=== PATIENT | male | born 1975 | race Caucasian/White ===

== ENCOUNTER 2018-11-21 11:15 | Outpatient (REF) | payer BC, SELFPAY ==
[2018-11-21 14:00] LABS: Hemoglobin A1C 5.9 % (4.5-6.2)
== END 2018-11-21 11:35 ==
LOC: NCHCN 11:15
PROVIDERS: PCP Family Medicine; Visit Provider Family Medicine
DX: R73.01 Impaired fasting glucose (principal)
CPT/HCPCS: 83036

== ENCOUNTER 2020-01-29 00:19 | Emergency (ER) | payer BC, SELFPAY ==
--- NOTE | 2020-01-29 00:15 | RT.EKG_ITS ---
APPROVED REPORT Exam: Resting ECG Patient Location: E HR:114 bpm ECG Measurements Heart Rate 114 AXIS DE 171 P 77 QRSd 95 QRS 48 QT 322 T 56 QTc 443 <Conclusion> Sinus tachycardia...rate> 99 NOSTElevation, sinustachycardia 114
[2020-01-29 00:20] VITALS: BP 141/86; PULSE 115; RESP 18; TEMP 37.1; O2SAT 94
--- NOTE | 2020-01-29 00:38 | ED.GENADUL_ITS ---
Discharge Plan Disposition Patient Disposition: HOME Condition: Good Discharge Details Chief Complaint: Seizure Clinical Impression: Seizure, Elevated TSH Primary Care Provider: Davis Bajwa ED Provider: Charlie Vásquez Home Meds and New Rx's Prescriptions: Continued multivitamin [Daily-Emma] 1 EACH tablet 1 ea PO DAILY RF: 0 lamotrigine [Lamictal] 200 MG tablet 200 mg PO DAILY RF: 0 simvastatin 20 MG tablet 20 mg PO DAILY RF: 0 Discharge Instructions Instructions: Recurrent Seizures in Adults (ED) Additional Instructions: At this time it appears that you have had 1 of your common seizures. It is likely this may have been from dehydration. Together through shared decision making process we have decided to hold off on CT imaging for the time being, however I do feel that outpatient imaging and potentially MRI is certainly indicated. We will schedule a referral with neurology Dr. Mccain for reevaluation of your chronic seizures. You should not drive, operate machinery, climb heights (such as a ladder), swim, or bathe alone or do anything else which could be dangerous if you would have another seizure. Please abide by this for the next 6 months or until cleared by a physician. Please make sure you are drinking plenty of fluid every day, recommending 10 to 12 cups of water per day. Your thyroid levels were not at the normal limits. Please follow-up closely with Dr. Roy in regards to this. If you notice any worsening of your symptoms, or any new symptoms such as vomiting, diarrhea, fever, chills, shortness of breath, chest pain, numbness, weakness, or fainting , please return immediately to the emergency department for reevaluation. Please follow up with your primary care provider as soon as possible for reassessment and reevaluation. As always, it was a pleasure participating in your medical care today. Referrals: Davis Bajwa [Primary Care Provider] - Catherine Mccain MD [ [facility] STAFF PHYSICIAN] - Medical Decision Making 44-year-old male with a past medical history of seizure disorder, sleep apnea, on lamotrigine chronically for treatment of seizures presents today for seizure. His last seizure was in 2005, patient states that this evening he came home from work, had already had dinner, and then shortly thereafter per his went into a tonic-clonic seizure, consistent with his previous seizures last of which she had 14 years ago. It lasted 1 minute, he was postictal afterwards, EMS was contacted and he was brought to the ER for further evaluation. Blood glucose was stable per EMS, vital signs stable. Currently the patient is returned to his normal mental status. He denies any complaints of headache, chest pain, shortness of breath, fever, chills, dysuria, change in medications, missed medication dose, alcohol or drug use. He does state that he normally does not drink much water throughout the day, but otherwise denies any other complaints or changes. Physical exam demonstrates no tongue biting, no micturition. No focal neurologic deficits. No evidence of meningitis. Patient otherwise appears well. Mucous membranes are notably dry. We will rehydrate the patient with 1 L of normal saline, get basic labs. EKG shows no evidence of STEMI or dysrhythmia, I feel his symptoms at this time are inconsistent with a cardiac etiology. 2:20 AM Patient's laboratory work-up is returned normal, of note his TSH is mildly elevated, free T4 however is normal. He has been rehydrated with 1 L of normal saline and feels well. Repeat exam continues to show no focal neurologic deficits. Signs and symptoms appear clinically consistent with seizure. Likely secondary to dehydration and fatigue. We again discussed imaging options, and at this time through shared decision making process we will hold off on any CT scans of the head, defer for outpatient testing with potential MRI. Patient feels well and would like to go home. Will discharge home with recommendations for close follow-up with neurology as well as PCP follow-up. Patient will be taking his home lamotrigine upon arrival at home. We did send out a level for lamotrigine and this can be followed up later with PCP. I have extensively reviewed the treatment plan and discharge instructions with the patient and their family. I have addressed all patient concerns at this time. The patient and family was made aware of what symptoms to monitor for that would warrant a return to the emergency department. Discussed the plan with the patient and family, they demonstrate verbal understanding and agreement with our assessment and plan at this time. EKG 00: 29 Sinus rhythm, rate 114, intervals normal, no significant ST elevations or depressions, no T wave inversions. No evidence of STEMI or WPW, Brugada syndrome, or other abnormality. HPI General Date/Time Provider Initiated Documentation: 01/29/20 00:27 . HPI Narrative: 44-year-old male with a past medical history of seizure disorder, sleep apnea, on lamotrigine chronically for treatment of seizures presents today for seizure. His last seizure was in 2005, patient states that this evening he came home from work, had already had dinner, and then shortly thereafter per his went into a tonic-clonic seizure, consistent with his previous seizures last of which she had 14 years ago. It lasted 1 minute, he was postictal afterwards, EMS was contacted and he was brought to the ER for further evaluation. Blood glucose was stable per EMS, vital signs stable. Currently the patient is returned to his normal mental status. He denies any complaints of headache, chest pain, shortness of breath, fever, chills, dysuria, change in medications, missed medication dose, alcohol or drug use. He does state that he normally does not drink much water throughout the day, but otherwise denies any other complaints or changes. He denies any tongue biting or mouth pain or loose teeth either. Related Data Home Medications Medication Instructions Recorded Confirmed lamotrigine [Lamictal] 200 mg PO DAILY 12/21/15 01/29/20 simvastatin 20 mg PO DAILY 12/21/15 01/29/20 multivitamin [Daily-Emma] 1 ea PO DAILY 08/02/16 01/29/20 Allergies Allergy/AdvReac Type Severity Reaction Status Date / Time No Known Allergies Allergy Unverified 01/29/20 00:23 General Stated Complaint: Seizure BANDAR: 3 Review of Systems All systems reviewed & are unremarkable except as noted in HPI and below PFSH Medical History Seizures (Acute) Social History Smoking/Tobacco Use Status: Never Alcohol Intake: never Drug use: Never Substance use type: does not use Do you feel safe at home: Yes Do you feel safe in your relationship?: Yes Exam Narrative Exam Narrative: 1.Const: Well-nourished, Well-developed, appearing stated age 2.Eyes: PERRL, no conjunctival injection, and symmetrical lids. 3.ENT: Atraumatic external nose and ears. Moist MM. Neck: Symmetric, trachea midline, No thyromegaly. No evidence of trauma to the tongue or teeth. Patient demonstrates good movement of cervical neck. There is no nuchal rigidity, no nuchal tenderness. Patient is able to flex the neck without any difficulty or significant pain. Negative Kernig's and Brudzinski sign. 4.CVS: +S1/S2, No murmurs or gallops. Peripheral pulses 2+ and equal in all extremities. Brisk capillary refill in all extremities. 5.RESP: Unlabored respiratory effort. Clear to auscultation bilaterally. No wheezes rales or rhonchi 6.GI: Soft, Nontender/Nondistended, No hepatosplenomegaly. No guarding or rebound. 7.MSK: Normocephalic/Atraumatic, Extremities w/o deformity or ttp No cyanosis or clubbing, Normal movement of all extremities 8.Skin: Warm, Dry. No rashes or lesions. 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 Sensation grossly intact, no focal neurologic deficits. All 6 cardinal planes of vision are fully intact. No evidence of rotatory or vertical nystagmus. Minimal horizontal nystagmus present. The patient demonstrated a normal idjbcd-phwj-gpzgjq, good dexterity. There was no evidence of dysdiadochokinesia. Patient was able to ambulate without difficulty. There was no wide-based gait. Romberg testing was normal. Ucmj-fk-xxqe testing was normal. Sensation was intact bilaterally as well as muscle strength bilaterally for all extremities. Patient was able to verbalize butter cup with no slurring, or miss pronunciation. 10.Psych: (AAO) x3. Appropriate mood and affect Course Vital Signs Vital signs: Vital Signs Temperature 37.1 C 01/29/20 00:20 Pulse 115 H 01/29/20 00:20 Respiratory Rate 18 01/29/20 00:20 Blood Pressure 141/86 H 01/29/20 00:20 Pulse Oximetry 94 L 01/29/20 00:20 Temperature 37.1 C 01/29/20 00:20 Temperature Source Temporal Artery Scan 01/29/20 00:20 Pulse 115 H 01/29/20 00:20 Respiratory Rate 18 01/29/20 00:20 Respiratory Effort Non-Labored 01/29/20 00:25 Respiratory Depth Normal 01/29/20 00:25 Respiratory Pattern Normal 01/29/20 00:25 Blood Pressure 141/86 H 01/29/20 00:20 Blood Pressure Position Sitting 01/29/20 00:20 Pulse Oximetry 94 L 01/29/20 00:20 Oxygen Delivery Method Room Air 01/29/20 00:20 Oxygen Flow Rate 0 01/29/20 00:20 Pain Level 0 01/29/20 00:20
[2020-01-29] MEDS: Normal Saline 1,000 ML 1000 ML IV (00:48)
[2020-01-29 01:02] LABS: Abs Immature Grans 0.02 k/cumm (0.0-0.09); Absolute Basophil Count 0.02 k/cumm (0.0-0.2); Absolute Eosinophil Count 0.48 k/cumm (0.0-0.7); Absolute Lymphocyte Count 2.33 k/cumm (1.2-3.4); Absolute Monocyte Count 0.75 k/cumm (0.11-0.7); Absolute Neutrophil Count 3.44 k/cumm (1.2-6.7); Basophils % 0.3; Eosinophils % 6.8; HCT 41.3 % (40.0-50.0); HGB 14.3 g/dL (13.5-17.5); Immature Grans % 0.3 %; Lymphocytes % 33.1; Mean Corp. HGB Concentration 34.6 g/dL (32.0-36.0); Mean Corpuscular Hemoglobin 29.4 pg (27.0-33.0); Mean Platelet Volume 9.3 fL (8.0-11.0); Monocytes % 10.7; Neutrophils % 48.8; Platelet Count 184 x1000/uL (130-400); RBC 4.86 m/cumm (4.50-6.00); RBC Distribution Width 12.8 % (11.8-14.1); White Blood Cell Count 7.04 k/cumm (4.4-10.8)
[2020-01-29 01:23] LABS: ALT 30 U/L (16-63); AST 21 U/L (15-37); Albumin 4.3 g/dL (3.4-5.0); Alkaline Phosphatase 92 U/L (46-116); Anion Gap 12.6 mmol/L (3-11); BUN 17 mg/dL (7-18); Bilirubin, Total 0.2 mg/dL (0.2-1.0); CO2 24.4 mmol/L (21.0-32.0); CREATININE 1.04 mg/dL (0.70-1.30); Calcium 8.6 mg/dL (8.5-10.1); Chloride 101 mmol/L (98-107); Glucose 129 mg/dL (74-106); Potassium 3.6 mmol/L (3.5-5.1); Sodium 138 mmol/L (136-145); TSH (W/Ref FT4) 5.39 uIU/mL (0.36-3.74); Total Protein 7.6 g/dL (6.4-8.2)
[2020-01-29 01:25] LABS: Troponin I < 0.05 ng/mL (<0.06)
[2020-01-29] MEDS: Acetaminophen 500 MG TAB 1000 MG PO (01:50)
[2020-01-29] MEDS: Lidocaine 5% Patch 1 PATCH TP (01:51)
[2020-01-29 02:01] LABS: FREE T4 0.84 ng/dL (0.76-1.46)
[2020-01-29 02:05] VITALS: BP 122/76; PULSE 92; RESP 18; TEMP 37.1; O2SAT 96
[2020-01-31 12:10] LABS: Lamotrigine 0.8 mcg/mL (2.5 - 15.0)
== END 2020-01-29 02:35 | disposition home or self-care (01) ==
PROVIDERS: Emergency Provider Student in an Organized Health Care Education/Training Program; PCP Family Medicine
DX: G40.909 Epilepsy, unspecified, not intractable, without status epilepticus (principal); R94.6 Abnormal results of thyroid function studies; E86.0 Dehydration
CPT/HCPCS: 36415; 80053; 80175; 93005; 96360; 96361; 99284; 84439; 84443; 84484; 85025; 93010; 99285

== ENCOUNTER 2020-02-01 03:56 | Outpatient (CLI) | payer BC, SELFPAY ==
--- NOTE | 2020-02-01 16:10 | DI.MRI_ITS ---
EXAM: MR BRAIN WO CLINICAL HISTORY: first seizure in 14 years,PARTIAL EPILEPSY,G40.109. TECHNIQUE: Multiplanar multisequence MRI was performed. COMPARISON: No exams were available for comparison FINDINGS: MR examination of brain was performed according to the usual protocol additional coronal T2 weighted imaging was obtained. Partial opacification of right maxillary antrum noted along with ethmoid mucoperiosteal thickening an d fluid bilaterally, consistent with chronic sinusitis. Ventricular system is normal in appearance. There is tiny focus of mildly increased signal intensity in right frontal white matter, nonspecific. No other signal abnormality identified in the brain. T here is question of mild right hippocampal atrophy seen on coronal images. No significant signal abn ormality identified in this area. Diffusion-weighted imaging shows no evidence of intracranial infarction. Susceptibility weighted dulce ging shows no evidence of hemorrhage or calcification. The orbital and temporal bone structures appe ar intact. There is normal appearance of the jjwiar-qe-Wdnsyt vasculature. IMPRESSION: Question slight right hippocampal atrophy seen on coronal images, this is a finding which may be seen in mesial temporal sclerosis. No other significant findings. Solitary small white matter high-sign al focus seen in right frontal lobe may be followed with a repeat MRI in 6-12 months if no prior stud ies are available for comparison. DATA REPOSITORY:
== END 2020-02-01 04:16 ==
PROVIDERS: PCP Family Medicine; Visit Provider Psychiatry & Neurology Neurology
DX: G40.109 Localization-related (focal) (partial) symptomatic epilepsy and epileptic syndromes with simple partial seizures, not intractable, without status epilepticus (principal); R90.89 Other abnormal findings on diagnostic imaging of central nervous system
CPT/HCPCS: 70551

== ENCOUNTER 2020-02-18 14:38 | Outpatient (CLI) | payer BC, SELFPAY ==
--- NOTE | 2020-02-18 | DI.RAD_ITS ---
EXAM: XR THORACIC SPINE COMPLETE CLINICAL HISTORY: THORACIC BACK PAIN,M54.9 TECHNIQUE: COMPARISON: CR CHEST 2 VIEWS PA,LAT from 03/04/2015 CR CHEST 2 VIEWS PA,LAT from 01/22/2017 FINDINGS: Three views were obtained. There is a slight biconvex thoracolumbar scoliosis. The intervertebral d isc spaces are fairly well maintained. There is minimal anterior wedging of the T8 vertebral body, i ncreased since prior chest radiograph of January 2017. This may represent minimal anterior compression fracture, acute versus old. No additional significant findings. IMPRESSION: Minimal anterior compression fracture T8 of uncertain age, please correlate clinically.
== END 2020-02-18 14:58 ==
PROVIDERS: PCP Family Medicine; Visit Provider Physician Assistant
DX: M48.54XA Collapsed vertebra, not elsewhere classified, thoracic region, initial encounter for fracture (principal); M54.9 Dorsalgia, unspecified
CPT/HCPCS: 72072

== ENCOUNTER 2020-03-28 13:35 | Outpatient (CLI) | payer BC, SELFPAY ==
[2020-03-30 13:00] LABS: Lamotrigine 4.1 mcg/mL (2.5 - 15.0)
== END 2020-03-28 13:55 ==
PROVIDERS: PCP Family Medicine; Visit Provider Psychiatry & Neurology Neurology
DX: G40.109 Localization-related (focal) (partial) symptomatic epilepsy and epileptic syndromes with simple partial seizures, not intractable, without status epilepticus (principal); Z51.81 Encounter for therapeutic drug level monitoring
CPT/HCPCS: 36415; 80175

== ENCOUNTER 2020-07-07 20:23 | Outpatient (REF) | payer BC, SELFPAY ==
[2020-07-07 13:51] LABS: Hemoglobin A1C 5.8 % (<5.7)
[2020-07-07 14:01] LABS: TSH (W/Ref FT4) 2.76 uIU/mL (0.36-3.74)
[2020-07-07 14:13] LABS: Calculated LDL 95 mg/dL (<100); Cholesterol 167 mg/dL (<200); HDL Cholesterol 46 mg/dL (40-60); Triglyceride 132 mg/dL (<150)
== END 2020-07-07 20:43 ==
LOC: NCHCN 20:23
PROVIDERS: PCP Family Medicine; Visit Provider Family Medicine
DX: Z00.00 Encounter for general adult medical examination without abnormal findings (principal); E03.9 Hypothyroidism, unspecified; R73.03 Prediabetes; Z13.220 Encounter for screening for lipoid disorders
CPT/HCPCS: 80061; 83036; 84443

== ENCOUNTER 2020-07-24 00:58 | Outpatient (CLI) | payer BC, SELFPAY ==
--- NOTE | 2020-07-24 | DI.MRI_ITS ---
EXAM: MR THORACIC SPINE WO CLINICAL HISTORY: THORACIC BACK PAIN, M54.9,S/P FALL WITH COMP FX,WORSENING PAIN,NO RELIEF TECHNIQUE: Multiplanar multisequence MRI of the thoracic spine was performed without intravenous con trast. COMPARISON: No exams were available for comparison FINDINGS: OSSEOUS: Mild depression of the superior endplate of T8 is noted, not associated with sub endplate in traosseous edema in the vertebral body. However, there is some intraosseous edema noted in both pedi cles at this level. Also in the T7 pedicles. There is no disc herniation at this level none nor spi nal canal stenosis nor epidural nor paraspinal hematoma. The exiting neural foramina are patent at t his level as well as other levels throughout the thoracic spinal column. There are no ominous osseou s lesions in the thoracic vertebrae. THORACIC SPINAL CORD: There is no abnormal signal in the cervical spinal cord and no evidence of foca l cord atrophy nor focal cord swelling. There is no evidence of syringomyelia nor significant spinal cord dysraphism. There is no evidence of mass at the conus medullaris. PARASPINAL TISSUES: There is a partially included finding in the right kidney which is probably a cys t measuring at least 4 centimetres. Renal ultrasound recommended. IMPRESSION: 1. Mild superior endplate compression of T8, not associated with sub endplate edema although there do es appear to be some edema in the pedicles and lamina of this vertebral body and also T7. No evidenc e of posterior cortex retropulsion. No central spinal canal stenosis. If clinically indicated 1 [facility] [place] [facility] consider performing CT scan through this region to determine if there are any very subtle fracture lines within the posterior osseous elements where there appears to be bone edema on this MRI study. 2. Finding in the right kidney which is partially included measures at least 4 centimeters. Probably a cyst but recommend ultrasound examination for confirmation. DATA REPOSITORY:
== END 2020-07-24 01:18 ==
PROVIDERS: PCP Family Medicine; Visit Provider Family Medicine
DX: S22.060A Wedge compression fracture of T7-T8 vertebra, initial encounter for closed fracture (principal); N28.89 Other specified disorders of kidney and ureter
CPT/HCPCS: 72146

== ENCOUNTER 2020-08-14 18:46 | Emergency (ER) | payer BC, SELFPAY ==
[2020-08-14 18:54] VITALS: BP 167/94; PULSE 116; RESP 18; TEMP 36.6; O2SAT 99
--- NOTE | 2020-08-14 19:17 | W.ED.GENAD ---
Discharge Plan Disposition Patient Disposition: HOME Condition: Stable Discharge Details Clinical Impression: Right foot sprain Primary Care Provider: Davis Bajwa ED Provider: Nino Guzmán Home Meds and New Rx's Prescriptions: Continued lamotrigine 50 mg tablet,disintegrating 50 mg PO HS Qty: 90 RF: 3 lamotrigine [Lamictal] 200 mg tablet 200 mg PO HS Qty: 90 RF: 3 multivitamin [Daily-Emma] 1 EACH tablet 1 ea PO DAILY RF: 0 simvastatin 20 MG tablet 20 mg PO DAILY RF: 0 Discharge Instructions Instructions: Foot Sprain (ED) Additional Instructions: Please use orthopedic boot and crutches for the next 1 week. If pain persists, please follow-up with orthopedics. Please take ibuprofen over the counter. Take 600mg by mouth every 6 hours as needed for pain. Return to the ER for any worsening or new concerning symptoms. Referrals: Davis Bajwa [Primary Care Provider] - Discharge Data Discharge Date/Time-TO BE ENTERED AT DEPARTURE: 08/14/20 20:35 Medical Decision Making 19:23 -- 45yo m with prior fracture of right fifth metatarsal, here after inversion injury today with tenderness over his lateral right foot. Tender at the base of his fifth metatarsal. Consider fracture versus sprain. Plan to obtain x-ray. I will give ibuprofen for discomfort. 20:20 -- xray interpreted by radiology: negative for fx. Suspect foot sprain. Foot boot provided. Usual and customary discharge instructions reviewed with patient. Patient has crutches at home and will use them. HPI General Mode of arrival: ambulatory. Date/Time Provider Initiated Documentation: 08/14/20 19:06. Limitations to Documentation: no limitations. Information obtained by: patient. HPI Narrative: 45-year-old male presents with chief complaint of foot pain. Patient notes he tripped over a bag and inverted his right foot. This occurred just prior to arrival. He has pain lateral right foot and over fifth metatarsal proximally. He notes he previously had fracture of the base of the fifth metatarsal that was treated nonoperatively. No other injury. Related Data Home Medications Medication Instructions Recorded Confirmed simvastatin 20 mg PO DAILY 12/21/15 08/14/20 multivitamin [Daily-Emma] 1 ea PO DAILY 08/02/16 08/14/20 lamotrigine 200 mg tablet 200 mg PO HS #90 tab 01/30/20 08/14/20 lamotrigine 50 mg disintegrating 50 mg PO HS #90 tab 01/30/20 08/14/20 tablet Previous Rx's Medication Instructions Recorded lamotrigine 200 mg tablet 200 mg PO HS #90 tab 01/30/20 lamotrigine 50 mg disintegrating 50 mg PO HS #90 tab 01/30/20 tablet Allergies Allergy/AdvReac Type Severity Reaction Status Date / Time No Known Allergies Allergy Unverified 08/14/20 18:57 General Stated Complaint: Orthopedic BANDAR: 4 Review of Systems Musculoskeletal Musculoskeletal: Reports as per HPI and Denies numbness Neurologic Neurologic: Denies numbness [facility] Medical History (Updated 08/14/20 @ 20:27 by Nino Guzmán MD) Elevated TSH Hyperlipidemia Obstructive sleep apnea Partial epilepsy Surgical History 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 History of mandibular surgery jaw reconstruction 1992 S/P nasal polypectomy 2009 Family History Father Heart disease Hypothyroid Mother Migraine Social History Smoking/Tobacco Use Status: Never Smoking risk assessment performed?: Yes Alcohol Intake: never Drug use: Never Substance use type: does not use Household members: spouse Housing: house Number of Children: 2 current occupation: [employer] Pets and animals: Yes Pets and animals: dog(s) What is your relationship status?: Panel score (0-1 are the most socially isolated patients): 1 What type of physical activity do you participate in: occasional exercise Seatbelt use: always Do you feel safe at home: Yes Do you feel safe in your relationship?: Yes Exam Const General: cooperative and no acute distress Cardio Rate: regular rate and not tachycardic Rhythm: regular rhythm Skin General skin exam: no rashes or lesions noted Neuro General: patient alert and patient awake Extrem General: no edema Right lower extremity: lower leg Details: no tenderness, ankle Details: no tenderness and no swelling and foot Details: tenderness Location: of the lateral foot and of the base of the 5th metatarsal, vascular exam Details: dorsalis pedis pulse present and motor-sensory exam Details: light-touch normal Course Vital Signs Vital signs: Vital Signs Temperature 36.6 C 08/14/20 18:54 Pulse 116 H 08/14/20 18:54 Respiratory Rate 18 08/14/20 18:54 Blood Pressure 167/94 H 08/14/20 18:54 Pulse Oximetry 99 08/14/20 18:54 Temperature 36.6 C 08/14/20 18:54 Temperature Source Temporal Artery Scan 08/14/20 18:54 Pulse 116 H 08/14/20 18:54 Respiratory Rate 18 08/14/20 18:54 Respiratory Effort 08/14/20 19:13 Blood Pressure 167/94 H 08/14/20 18:54 Blood Pressure Position Sitting 08/14/20 18:54 Pulse Oximetry 99 08/14/20 18:54 Pain Level 8 08/14/20 18:54
[2020-08-14] MEDS: Ibuprofen 600 MG TAB PO (19:20)
--- NOTE | 2020-08-14 19:40 | DI.RAD_ITS ---
EXAM: XR FOOT RT COMPLETE CLINICAL HISTORY: pain lateral foot, tripped inverted. TECHNIQUE: 2D digital imaging was performed. COMPARISON: CR RIGHT FOOT COMPLETE from 11/15/2016 FINDINGS: There is no evidence of fracture nor diastasis of the Lisfranc joint.. No radiopaque foreign body. No osseous lesions. Bone density is normal. IMPRESSION: DATA REPOSITORY: RADIATION DOSE DELIVERED:
--- NOTE | 2020-08-14 19:49 | DI.VRAD_ITS ---
PROCEDURE INFORMATION: Exam: XR Right Foot Complete Exam date and time: 08/14/2020 7:41 PM Age: 45 years old Clinical indication: Patient HX: Right foot pain after inversion injury. Previous 5th mtp FX 4 years ago. TECHNIQUE: Imaging protocol: XR Right foot. Views: 3 or more views. COMPARISON: CR RIGHT FOOT COMPLETE 11/15/2016 8:34 AM FINDINGS: Bones/joints: The prior nondisplaced transverse fracture through the base of the 5th metatarsal appears healed. No acute fractures are identified. There are no subluxations. Again noted is mild hallux valgus deformity. The joint spaces are maintained without degenerative changes. The plantar arch is maintained. Soft tissues: Normal. IMPRESSION: No acute fractures or subluxations. Dictated and Authenticated by: Davis Garrido MD. Ordering:BRIE Oneill MD
[2020-08-14 20:36] VITALS: BP 132/75; PULSE 88; RESP 16; TEMP 36.6
== END 2020-08-14 20:35 | disposition home or self-care (01) ==
PROVIDERS: Emergency Provider Student in an Organized Health Care Education/Training Program; PCP Family Medicine
DX: S93.691A Other sprain of right foot, initial encounter (principal); X50.9XXA Other and unspecified overexertion or strenuous movements or postures, initial encounter
CPT/HCPCS: 99283; 73630

== ENCOUNTER 2021-09-22 09:17 | Outpatient (CLI) | payer BC, SELFPAY | END 2021-09-22 09:18 | disposition home or self-care (01) | LOC: DI.CM 09:18 | PROVIDERS: PCP Family Medicine; Visit Provider Physician Assistant | DX: R69 Illness, unspecified (principal) | CPT/HCPCS: 93010 ==

== ENCOUNTER 2021-09-22 10:16 | Outpatient (CLI) | payer BC, SELFPAY ==
--- NOTE | 2021-09-22 10:00 | DI.RAD_ITS ---
Exam(s) XR CHEST 2V PA LATERAL EXAM: XR CHEST 2V PA LATERAL CLINICAL HISTORY: viral symptoms, right chest pain, hx right pneumon, R07.9. TECHNIQUE: 2D digital imaging was performed. COMPARISON: CR CHEST 2 VIEWS PA,LAT from 01/22/2017 FINDINGS: Heart size is normal. The mediastinum is not widened. Lungs are clear. No infiltrates nor pleural effusions. IMPRESSION: No acute pulmonary findings. DATA REPOSITORY: RADIATION DOSE DELIVERED:
== END 2021-09-22 10:36 ==
PROVIDERS: PCP Family Medicine; Visit Provider Physician Assistant
DX: R07.89 Other chest pain (principal)
CPT/HCPCS: 71046

== ENCOUNTER 2021-12-08 18:39 | Outpatient (REF) | payer BC, SELFPAY ==
[2021-12-08 19:33] LABS: Anion Gap 8.3 mmol/L (3-11); BUN 12 mg/dL (7-18); CO2 27.7 mmol/L (21.0-32.0); CREATININE 0.9 mg/dL (0.70-1.30); Calcium 9.1 mg/dL (8.5-10.1); Chloride 103 mmol/L (98-107); Glucose 119 mg/dL (74-106); Potassium 3.7 mmol/L (3.5-5.1); Sodium 139 mmol/L (136-145); TSH (W/Ref FT4) 1.86 uIU/mL (0.36-3.74)
== END 2021-12-08 18:40 | disposition home or self-care (01) ==
LOC: NCHCN 18:39
PROVIDERS: PCP Family Medicine; Visit Provider Family Medicine
DX: E03.9 Hypothyroidism, unspecified (principal); R03.0 Elevated blood-pressure reading, without diagnosis of hypertension
CPT/HCPCS: 80048; 84443

== ENCOUNTER 2022-04-22 09:16 | Day surgery (SDC) | payer OTHER, SELFPAY ==
--- NOTE | 2022-04-22 06:02 | W.PM.DSUDISC ---
Discharge Plan Disposition Patient Disposition: HOME Condition: Good Discharge Details Reason For Visit: Screening colonoscopy routine health maintenance Attending Provider: Reji Jamison Primary Care Provider: Davis Bajwa Home Meds and New Rx's Prescriptions: Continued acetaminophen [Tylenol Extra Strength] 500 mg tablet 1,000 mg PO BID PRN meloxicam 15 mg tablet 15 mg PO DAILY PRN (Reason: back pain) 30 Days Qty: 30 5RF Rx Instructions: Take with food. Stop ibuprofen. lamotrigine 50 mg tablet,disintegrating 50 mg PO HS Qty: 90 3RF lamotrigine [Lamictal] 200 mg tablet 200 mg PO HS Qty: 90 3RF multivitamin [Daily-Emma] 1 EACH tablet 1 ea PO DAILY cyclobenzaprine 10 mg tablet 10 mg PO TID simvastatin 20 MG tablet 20 mg PO DAILY Discharge Instructions Instructions: Colorectal Polyps (DC) Additional Instructions: 1. If tolerated, consume a soft, low fiber diet for 1-2 days. [address] Do not drive, drink alcohol, operate machinery, make critical decisions, or do activities that require coordination or balance for 24 hours. 3. Because air was put into your colon during the procedure, expelling air from your rectum (passing gas or farting) is normal. 4. You may not have a bowel movement for 1-3 days because of the colonoscopy prep. This is normal. 5. Go directly to the emergency room if you notice any of the following: Develop chills (warm to touch), or if you have a thermometer and your temperature is above 101 Difficulty breathing or difficultly swallowing Persistent vomiting Severe abdominal pain, other than gas cramps Severe chest pain Black, tarry stools Any bleeding ? exceeding one tablespoon 6. Call your physician if the site where your intravenous was started becomes red, swollen, painful, and warm to touch. 7. Your physician has reviewed your pre-procedure medications. Please continue to take those medications as previously ordered. You will be given specific information/education regarding any changes to your medications before leaving. Activity:: Activity as Tolerated Diet:: As Tolerated Discharge Orders Discharge Orders: Discharge Order (Routine); Ordered 04/22/22 Ordered By: Reji Jamison DS: Diagnosis Discharge Diagnosis (1) Rectal polyp: Status: Acute Asessment and Plan: My office will contact you with the results of the biopsies
--- NOTE | 2022-04-22 06:04 | W.COLOREPORT ---
Colonoscopy Report Date of procedure: 04/22/22 Pre-op diagnosis general: screening colonoscopy routine health maintenance Post-op diagnosis procedure note: other (rectal polyps) Procedure: screening colonoscopy Surgeon: Reji Jamison Anesthesia Type: General:No Airway Estimated blood loss (mL): 30 Pathology: other (rectal polyps x3) Complications: None Disposition: same day Indications: Alex is a 46 year old male who is here for his first screening colonoscopy as part of routine health maintenance Prep: Miralax/Dulcolax Procedure Start Time: 10:07 Procedure End Time: 10:30 Retraction Time: 18 Procedure Description: After the induction of monitored anesthetic care, and with the patient in left lateral decubitus position, I began by performing an external anorectal exam.? Perineum and skin were normal, as was the anal verge.? There was no evidence of external hemorrhoids.? Next, I performed a digital rectal exam.? I did not appreciate any abnormal findings.? Next, I advanced a colonoscope into the rectal vault.? I performed retroflexion.? I did not see signs of pathologic internal hemorrhoids.? Using insufflation, I then advanced the colonoscope beyond the rectal folds and into the sigmoid colon before advancing towards the cecum.? While traversing the rectum, I identified 3 large polyps. They were all about 1 cm. It were all pedunculated. I was able to perform polypectomy using cold snare. There was minimal bleeding. The quality of the prep was great.? The scope was noted to be in the cecum by identification of the ileocecal valve and appendiceal orifice.? I then began withdrawing the colonoscope using repeated irrigation as necessary for full evaluation of the colonic mucosa. ?Once the scope was withdrawn to the level of the rectum, great care was taken to examine portions of the rectal folds.? Finally, the scope was withdrawn and the patient was brought to the same-day surgery recovery unit as the anesthetic wore off. ?The findings and instructions were shared with the patient prior to discharge.
[2022-04-22 09:25] VITALS: BP 133/84; PULSE 86; RESP 16; TEMP 36.6; O2SAT 99
--- NOTE | 2022-04-22 09:40 | W.ANESPRE ---
General Info Date of Service Date Performed: 04/22/22 Height: 5 ft 7 in Weight: 72.2 kg Body Mass Index (BMI): 24.9 Surgical Procedure: Operation Date: 04/22/22 10:35 Proposed Procedure Side Surgeon francisco javier Jamison MD Meds Allergies and Home Medications Allergies Allergy/AdvReac Type Severity Reaction Status Date / Time No Known Allergies Allergy Verified 04/22/22 09:23 Home Medication Medication Instructions Recorded simvastatin 20 mg tablet 20 mg PO DAILY 12/21/15 multivitamin (Daily-Emma tablet) 1 ea PO DAILY 08/02/16 lamotrigine 200 mg tablet 200 mg PO HS #90 tabs 01/30/20 (Lamictal) lamotrigine 50 mg disintegrating 50 mg PO HS #90 tabs 01/30/20 tablet acetaminophen 500 mg tablet 1,000 mg PO BID PRN 09/08/20 (Tylenol Extra Strength) meloxicam 15 mg tablet 15 mg PO DAILY PRN back pain 30 09/08/20 days #30 tabs cyclobenzaprine 10 mg tablet 10 mg PO TID 02/17/22 Current Visit Medications: Current Medications Generic Name Dose Route Start Last Admin Trade Name Freq PRN Reason Stop Dose Admin Hyoscyamine Sulfate 0.125 mg 04/22/22 06:02 Hyoscyamine 0.125 Mg Sl/Oral/Chew SL DIRECTED PRN Ringer's Solution 1,000 mls @ 80 mls/hr 04/22/22 06:00 IV 05/21/22 23:59 [facility] IV Miscellaneous Supplies 1 each 04/22/22 06:00 Iv Access IV 05/21/22 23:59 DIRECTED ISAMAR Ondansetron HCl 4 mg 04/22/22 06:02 Ondansetron 4 Mg/2 Ml Vial IVP Q4H PRN PRN Nausea / Vomiting Sodium Chloride 0 ml 04/22/22 06:00 Normal Saline Flush 10 Ml Syr IV 05/21/22 23:59 PRN PRN Sodium Chloride 0 ml 04/22/22 06:00 Normal Saline 10 Ml Vial IJ 05/21/22 23:59 DIRECTED PRN Sterile Water 0 ml 04/22/22 06:00 Water,Injection,Sterile 10 Ml Vial IJ 05/21/22 23:59 DIRECTED PRN PFSH Active Problems Active Problems: Problem Status Onset Code Elevated blood pressure reading R03.0 Sleep apnea G47.30 Family history of colon cancer Z80.0 Medical History Medical History Acute pharyngitis due to other specified organisms Elevated TSH Hyperlipidemia Impacted cerumen of both ears Nasal polyposis Nasal polyps Obstructive sleep apnea Pain in throat Partial epilepsy Prediabetes Renal mass Seasonal allergies Subclinical hypothyroidism Temporal lobe epilepsy Last Seizure 01/2020-[place] Thoracic back pain Surgical History Surgical History 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 History of mandibular surgery jaw reconstruction 1992 S/P nasal polypectomy 2010 Tobacco Smoking/Tobacco Use Status: Never Alcohol Alcohol Intake: never Substance Use Substance use: Never Substance use type: does not use Vital Signs and Lab Results Vital Signs Most Recent Vital Signs in EMR: Most Recent Vital Signs Temp Pulse Resp BP Pulse Ox 36.6 C 86 16 133/84 99 04/22/22 09:25 04/22/22 09:25 04/22/22 09:25 04/22/22 09:25 04/22/22 09:25 Lab Results Blood Type / Crossmatch: No Data to Display Complete Blood Count: No Data to Display Complete Metabolic Panel: No Data to Display Liver Function Panel: No Data to Display Coagulation Panel: No Data to Display Cardiac Panel: No Data to Display Arterial Blood Gas: No Data to Display Venous Blood Gas: No Data to Display Pancreas Panel: No Data to Display Thyroid Panel: No Data to Display Infectious Disease: No Data to Display Blood Cultures: No Data to Display Toxicology Panel: No Data to Display Anesthesia Assessment and Plan Anesthesia History Personal History: PONV Family History: No Family History of Anesthesia Complications Exercise Tolerance Exercise Tolerance: Metabolic Equivalents>4 Pertinent Negatives Pertinent Negatives: No Symptoms of GERD, No Major Cardiovascular Symptoms or Complaints and No Major Pulmonary Symptoms or Complaints Cardiac & Pulmonary Exam Cardiac Exam: Normal S1/S2 Heart Sounds Pulmonary Exam: Clear Bilateral Breath Sounds Implantable Cardiac Device Does patient have a Pacemaker or an ICD?: No Airway Exam Known Difficult Airway: No Mallampati Class: 2 Mouth Opening: Normal (> 3cm) Thyromental Distance: Greater than 3 cm Neck Range of Motion: Full ROM Neck Circumference: Normal Teeth Condition: Normal Dentition ASA Classification ASA Score: ASA 2 Emergency Case?: No NPO Status NPO Status: NPO Clears >2 hours, Solids >8 hours Anesthesia Plan Resuscitation Status: Full Code Anesthesia Technique: General Anesthesia Airway Planned: Natural Airway Monitors Used: Standard Monitors
[2022-04-22 09:43] VITALS: BMI 24.9
[2022-04-22] MEDS: Lactated Ringers 1,000 ML 80 ML IV (09:46)
--- NOTE | 2022-04-22 10:10 | BOWEL_PTH ---
PATIENT: Alex Martinez LOC: [facility] U#:[id number] AGE/SX: 46/M ROOM: RE04/22/[address]: Reji Jamison MD : 1975 BED: DIS: 04/22/2022 SPEC #: [id number] RECD: 04/22/22 13:04 STATUS: YONATHAN REQ #: [id number] SARTHAK: 04/22/22 10:[address]: Reji Jamison DEPT: Surgical Specimen RECD BY: Amita Velasquez ENTERED: 04/22/22 13:06 SP TYPE: Bowel OTHR DR: Davis Bajwa Tissues: 1 - BIOPSY BOWEL 2 - BIOPSY BOWEL 3 - BIOPSY BOWEL Procedures: GROSS AND MICRO LEVEL 4 Comments: [id number]
[2022-04-22 10:42] VITALS: BP 122/83; PULSE 81; RESP 16; TEMP 36.6; O2SAT 99
[2022-04-22 11:10] VITALS: BP 118/87; PULSE 81; RESP 16; TEMP 36.6; O2SAT 100
--- NOTE | 2022-04-22 13:04 | ANES.POST_ITS ---
Postoperative Evaluation Date, Time and Location Date Performed: 04/22/22 Time Performed: 13:04 Patient Location: Day Surgery Unit Vital Signs Most Recent Imported Vital Signs: Most Recent Vital Signs Temp Pulse Resp BP Pulse Ox 36.6 C 81 16 118/87 100 04/22/22 11:10 04/22/22 11:10 04/22/22 11:10 04/22/22 11:10 04/22/22 11:10 Pain Score Most Recent Pain Score: Most Recent Pain Score Pain Level 0 04/22/22 11:10 Assessment Mental Status: Awake (Alert & Oriented to Patient Baseline) Airway and Respiratory Function: Patent airway with normal (patient baseline) respiratory exam Cardiovascular Function: Hemodynamically Stable Hydration Status: Adequately Hydrated Nausea & Vomiting: No Nausea or Vomiting Pain: Pt. Denies Any Pain Peripheral Nerve Block: Patient did not receive a nerve block Postoperative Comments:: Patient seen earlier today. Doing well, denied questions at that time. A ppropriate for discharge.
== END 2022-04-22 12:57 | disposition home or self-care (01) ==
PROVIDERS: PCP Family Medicine; Visit Provider Surgery
PROC: 0DJD8ZZ Inspection of Lower Intestinal Tract, Via Natural or Artificial Opening Endoscopic (ICD-10-PCS; CPT 45378; principal; 2022-04-22 10:30)
DX: Z12.11 Encounter for screening for malignant neoplasm of colon (principal); K62.1 Rectal polyp; G40.909 Epilepsy, unspecified, not intractable, without status epilepticus; G47.33 Obstructive sleep apnea (adult) (pediatric); Z80.0 Family history of malignant neoplasm of digestive organs; R73.03 Prediabetes
CPT/HCPCS: 45385; 88305

== ENCOUNTER 2022-09-06 15:25 | Outpatient (CLI) | payer OTHER, SELFPAY ==
--- NOTE | 2022-09-06 15:15 | DI.RAD_ITS ---
Exam(s) XR WRIST LT COMPLETE EXAM: XR WRIST LT COMPLETE CLINICAL HISTORY: pain and instability of left thumb CMC. TECHNIQUE: 2D digital imaging was performed. Three views. COMPARISON: No exams were available for comparison FINDINGS: BONES: No acute fracture is present. No bony destructive lesion is seen. JOINTS: The carpal bones are normally aligned. No significant degenerative changes. SOFT TISSUE: Normal. IMPRESSION: Unremarkable radiographs of the left wrist. DATA REPOSITORY: RADIATION DOSE DELIVERED:
== END 2022-09-06 15:26 | disposition home or self-care (01) ==
LOC: DIORS 15:25
PROVIDERS: PCP Family Medicine; Referring Provider Family Medicine; Visit Provider Student in an Organized Health Care Education/Training Program
DX: S63.042A Subluxation of carpometacarpal joint of left thumb, initial encounter (principal); X58.XXXA Exposure to other specified factors, initial encounter
CPT/HCPCS: 73110

== ENCOUNTER 2023-05-04 07:10 | Emergency (ER) | payer OTHER, SELFPAY ==
[2023-05-04 07:14] VITALS: BP 161/88; PULSE 101; RESP 16; TEMP 36.7; O2SAT 99
[2023-05-04 07:21] VITALS: BP 161/88; PULSE 101; RESP 16; TEMP 36.7; O2SAT 101
--- NOTE | 2023-05-04 07:27 | W.ED.GENAD ---
Discharge Plan Disposition Patient Disposition: Home Condition: Improving Discharge Details Chief Complaint: Abd Prob Clinical Impression: Acute mesenteric adenitis Primary Care Provider: Davis Bajwa ED Provider: Ortega Honeycutt Home Meds and New Rx's Prescriptions: No Action acetaminophen [Tylenol Extra Strength] 500 mg tablet 1,000 mg PO BID PRN meloxicam 15 mg tablet 15 mg PO DAILY PRN (Reason: back pain) 30 Days Qty: 30 5RF Rx Instructions: Take with food. Stop ibuprofen. fluticasone propionate [Flonase Allergy Relief] 50 mcg/actuation spray,suspension 2 spray intranasal DAILY 30 Days Qty: 16 12RF Rx Instructions: administer into each nostril lamotrigine 50 mg tablet,disintegrating 50 mg PO HS Qty: 90 3RF lamotrigine [Lamictal] 200 mg tablet 200 mg PO HS Qty: 90 3RF multivitamin [Daily-Emma] 1 EACH tablet 1 ea PO DAILY cyclobenzaprine 10 mg tablet 10 mg PO TID simvastatin 20 MG tablet 20 mg PO DAILY Discharge Instructions Instructions: Mesenteric Adenitis (ED) Additional Instructions: Please continue to hydrate at home consider Pedialyte/Gatorade as well as anti-inflammatory such as ibuprofen and acetaminophen. Please return to the emergency department for any worsening symptoms Stand Alone Forms: Work Release Medical Decision Making 48-year-old male presents with 3 days of loose stool nausea abdominal bloating and discomfort. Afebrile nontoxic however mildly tachycardic, with gaseous distention of abdomen nonperitoneal. Consider viral illness gastroenteritis COVID foodborne illness lower suspicion for bowel obstruction was also consider colitis, patient had a clear colonoscopy within the last year lower suspicion for malignancy. Fluids antiemetics analgesia, basic labs COVID swab, close reassessment consider imaging if no improvement 8: 56 patient feeling better after medications and fluids. Mild transaminitis without elevation of bilirubin. Shared decision regarding home with close follow-up versus pursuing further imaging discussed with patient, we will pursue CT abdomen pelvis with IV contrast. 10: 41 patient resting comfortably feeling better after meds and fluids. CT showing likely mesenteric adenitis in the setting of viral gastroenteritis. Home care instructions and return precautions given HPI General Date/Time Provider Initiated Documentation: 05/04/23 07:15. HPI Narrative: 48-year-old male presents with 3 days of loose stool bloating abdominal discomfort, tried to adjust diet and use Gas-X without relief. Nausea without vomiting. Denies fevers or chills no recent travel no recent sick contacts. Patient does work here at the hospital. No history of abdominal surgeries. Patient endorses a normal colonoscopy within the last year. Related Data Home Medications Medication Instructions Recorded Confirmed simvastatin 20 mg tablet 20 mg PO DAILY 12/21/15 04/27/23 multivitamin (Daily-Emma tablet) 1 ea PO DAILY 08/02/16 04/27/23 lamotrigine 200 mg tablet 200 mg PO HS #90 tabs 01/30/20 04/27/23 (Lamictal) lamotrigine 50 mg disintegrating 50 mg PO HS #90 tabs 01/30/20 04/27/23 tablet acetaminophen 500 mg tablet 1,000 mg PO BID PRN 09/08/20 04/27/23 (Tylenol Extra Strength) meloxicam 15 mg tablet 15 mg PO DAILY PRN back pain 30 09/08/20 04/27/23 days #30 tabs cyclobenzaprine 10 mg tablet 10 mg PO TID 02/17/22 04/27/23 fluticasone propionate 50 2 spray intranasal DAILY 30 days 04/27/23 04/27/23 mcg/actuation nasal #16 grams spray,suspension (Flonase Allergy Relief) Previous Rx's Medication Instructions Recorded lamotrigine 200 mg tablet 200 mg PO HS #90 tabs 01/30/20 (Lamictal) lamotrigine 50 mg disintegrating 50 mg PO HS #90 tabs 01/30/20 tablet meloxicam 15 mg tablet 15 mg PO DAILY PRN back pain 30 09/08/20 days #30 tabs fluticasone propionate 50 2 spray intranasal DAILY 30 days 04/27/23 mcg/actuation nasal #16 grams spray,suspension (Flonase Allergy Relief) Allergies Allergy/AdvReac Type Severity Reaction Status Date / Time No Known Allergies Allergy Verified 04/27/23 14:23 General Stated Complaint: Abd Prob BANDAR: 3 Review of Systems Narrative: Review of Systems Constitutional: negative Eyes: negative ENT: negative Cardiovascular: negative Respiratory: negative Gastrointestinal: Nausea, diarrhea, abdominal : negative Musculoskeletal: negative Skin: negative Neurologic: negative Psych: negative PFSH All Active Problems (Updated 05/04/23 @ 10:43 by Ortega Honeycutt MD) Acute mesenteric adenitis (Acute) Eustachian tube dysfunction (Acute) Dysfunction of left rotator cuff (Acute) Subluxation of carpometacarpal joint of left thumb (Acute) Hyperplastic colon polyp (Acute) Rectal polyp (Acute) Elevated blood pressure reading (Acute) Sleep apnea (Acute) Family history of colon cancer (Acute) Medical History Acute pharyngitis due to other specified organisms Elevated TSH Hyperlipidemia Impacted cerumen of both ears Nasal polyposis Nasal polyps Obstructive sleep apnea Pain in throat Partial epilepsy Prediabetes Renal mass Seasonal allergies Subclinical hypothyroidism Temporal lobe epilepsy Last Seizure 01/2020-[place] Thoracic back pain Surgical History 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 History of colonoscopy (~04/2022) History of mandibular surgery jaw reconstruction 1992 S/P nasal polypectomy 2009 Family History Father Heart disease Hypothyroid Mother Migraine Social History Smoking/Tobacco Use Status: Never Smoking risk assessment performed?: Yes Alcohol Intake: never Drug use: Never Substance use type: does not use Household members: spouse Housing: house Number of Children: 2 current occupation: [employer] Pets and animals: Yes Pets and animals: dog(s) What is your relationship status?: Panel score (0-1 are the most socially isolated patients): 1 What type of physical activity do you participate in: occasional exercise Seatbelt use: always Do you feel safe at home: Yes Do you feel safe in your relationship?: Yes Exam Narrative Exam Narrative: Physical Examination General: alert, awake, cooperative, resting comfortably, no acute distress HEENT: normocephalic, atraumatic; PERRL, EOM intact, conjunctiva normal; no nasal discharge; moist mucous membranes, oral and pharyngeal mucosa normal, tolerating secretions Neck: supple, trachea midline; full ROM Chest: normal to inspection Respiratory: normal respiratory effort, speaking in full sentences, clear to auscultation, no wheezing, rales or rhonchi Cardiac: Tachycardic, regular rhythm, S1S2 intact, no murmurs rubs or gallops GI: abdomen soft, non-tender, mild gaseous distention; no palpable mass or hepatosplenomegaly Skin: no lesions, rashes or trauma appreciated Neuro: AAOx3, normal speech, moving all extremities Psych: Appropriate mood and affect Course Vital Signs Vital signs: Vital Signs Temperature 36.7 C 05/04/23 07:14 Pulse 101 H 05/04/23 07:14 Respiratory Rate 16 05/04/23 07:14 Blood Pressure 161/88 H 05/04/23 07:14 Pulse Oximetry 99 05/04/23 07:14 Temperature 36.7 C 05/04/23 07:21 Temperature Source Tympanic 05/04/23 07:21 Pulse 101 H 05/04/23 07:21 Respiratory Rate 16 05/04/23 07:21 Blood Pressure 161/88 H 05/04/23 07:21 Blood Pressure Position Sitting 05/04/23 07:21 Pulse Oximetry 101 H 05/04/23 07:21 Oxygen Delivery Method Room Air 05/04/23 07:21 Oxygen Flow Rate 0 05/04/23 07:14
[2023-05-04 07:43] LABS: Abs Immature Grans 0.01 10^3/uL (0.0-0.06); Absolute Basophil Count 0.02 10^3/uL (0.0-0.2); Absolute Eosinophil Count 0.38 10^3/uL (0.0-0.7); Absolute Lymphocyte Count 1.38 10^3/uL (1.2-3.4); Absolute Monocyte Count 0.82 10^3/uL (0.1-0.8); Basophils % 0.3; Eosinophils % 6.3; HCT 44.8 % (40.0-50.0); HGB 15.4 g/dL (13.5-17.5); Immature Grans % 0.2; MCH 29.2 pg (27.0-33.0); MCHC 34.4 % (32.0-36.0); MCV 85 fL (80-95); MPV 8.7 fL (8.0-11.0); Monocytes % 13.6; Neutrophils % 56.6; Platelet Count 135 10^3/uL (130-400); RBC 5.28 10^6/uL (4.36-5.78); RDW 12.7 % (11.8-14.1); RDW-SD 39.2 fL; WBC 6.01 10^3/uL (4.4-10.8)
[2023-05-04] MEDS: Ketorolac 15 MG/ML VIAL IVP (07:43)
[2023-05-04] MEDS: Normal Saline 1,000 ML 1000 ML IV (07:43)
[2023-05-04] MEDS: Ondansetron 4 MG/2 ML VIAL IVP (07:44)
[2023-05-04 07:59] LABS: ALT 73 U/L (16-63); AST 45 U/L (15-37); Albumin 3.8 g/dL (3.4-5.0); Alkaline Phosphatase 109 U/L (46-116); Anion Gap 4.6 mmol/L (3-11); BUN 5 mg/dL (7-18); Bilirubin, Total 0.3 mg/dL (0.2-1.0); CO2 30.4 mmol/L (21.0-32.0); CREATININE 0.9 mg/dL (0.70-1.30); Calcium 9.1 mg/dL (8.5-10.1); Chloride 104 mmol/L (98-107); Estimated GFR 106.01 (mL/min/1.73m2); Glucose 104 mg/dL (74-106); Lipase 21 U/L (16-77); Potassium 3.5 mmol/L (3.5-5.1); Sodium 139 mmol/L (136-145); Total Protein 7.2 g/dL (6.4-8.2)
[2023-05-04 08:28] LABS: COVID-19 PCR Negative (Negative); Influenza A PCR Negative (Negative); Influenza B PCR Negative (Negative); RSV PCR Negative (Negative)
[2023-05-04 08:43] LABS: Source Nasopharynx
--- NOTE | 2023-05-04 08:52 | DI.CT_ITS ---
Exam(s) CT ABDOMEN PELVIS W EXAM: CT ABDOMEN PELVIS W CLINICAL HISTORY: abd pain bloating diarrhea TECHNIQUE: Imaging Protocol: Axial computed tomography images with coronal and sagittal reformatted images were created and reviewed CONTRAST MATERIAL: Intravenous: Omnipaque 350 Contrast volume:100 mL Oral: No COMPARISON: US US RENAL from 04/26/2023 FINDINGS: ABDOMEN: Lung Bases: There may be a small hiatal hernia present. Liver: Normal density. No measurable mass. Portal, Superior Mesenteric, and Splenic Veins: Unremarkable. Gallbladder and Biliary Tract: No radiodense calculus or dilation. Pancreas: Normal density, no abnormal calcifications or inflammatory process. Spleen: Normal. Adrenals: No masses seen. Kidneys: Normal size, contour and axis. No radiodense stones or obstructive uropathy. There is a 4.3 cm simple cyst in the right kidney. No follow-up is recommended. Abdominal Aorta: Abdominal portion non-dilated. Bowel: There are few diverticula seen in the sigmoid colon but no evidence of acute diverticulitis. There is no evidence of bowel wall thickening or obstruction. There is no evidence of pneumatosis. Appendix is unremarkable. Peritoneal Cavity: Mildly prominent lymph nodes are seen in the mesentery which may represent mesente ciera adenitis. No ascites is seen. No free air. Lymph Nodes: Within normal limits. Bones: Within normal limits for the patient's age. Soft Tissues: Unremarkable. PELVIS: Bladder: Symmetric distention, no gross wall thickening. Reproductive Organs: Unremarkable as visualized. Lymph Nodes: Within normal limits. Bones: Within normal limits for the patient's age. IMPRESSION: 1. Mildly enlarged lymph nodes seen in the mesentery which may represent mesenteric adenitis. 2. Normal appendix. 3. No evidence of a bowel inflammation or infectious process. 4. Findings were discussed with Dr. Honeycutt at 10:28 a.m. on 05/04/2023. RADIATION DOSE DELIVERED: Total DLP DATA REPOSITORY: All CT scans at this facility are submitted to the National Radiology Data Registry (NRDR) Dose Index Registry (DIR) with the [employer] (A[employer]). RADIATION OPTIMIZATION: All CT scans at this facility use at least one of these dose optimization te chniques: automated exposure control; mA and/or kV adjustment per patient size (includes targeted exa ms where dose is matched to clinical indication); or iterative reconstruction.
[2023-05-04] MEDS: Normal Saline - Diluent 50 ML VIAL IJ (09:39)
[2023-05-04] MEDS: Omnipaque 350 MG/ML 500 ML BTL-Imaging package IJ (09:41)
== END 2023-05-04 11:03 | disposition home or self-care (01) ==
PROVIDERS: Emergency Provider Emergency Medicine; PCP Family Medicine
DX: R10.9 Unspecified abdominal pain (principal); R14.0 Abdominal distension (gaseous); I88.0 Nonspecific mesenteric lymphadenitis; Z20.822 Contact with and (suspected) exposure to COVID-19
CPT/HCPCS: 80053; 83690; 87637; 96361; 96374; 96375; 99285; 74177; 85025; 99284; J1885; J2405

== ENCOUNTER 2023-09-01 16:58 | Outpatient (REF) | payer OTHER, SELFPAY ==
[2023-09-01 16:07] LABS: ALT 26 U/L (16-63); AST 15 U/L (15-37); Albumin 4.4 g/dL (3.4-5.0); Alkaline Phosphatase 112 U/L (46-116); Anion Gap 8.5 mmol/L (3-11); BUN 10 mg/dL (7-18); Bilirubin, Total 0.3 mg/dL (0.2-1.0); CO2 29.5 mmol/L (21.0-32.0); CREATININE 0.9 mg/dL (0.70-1.30); Calcium 9.5 mg/dL (8.5-10.1); Chloride 106 mmol/L (98-107); Estimated GFR 106.01 (mL/min/1.73m2); Glucose 104 mg/dL (74-106); Potassium 4.1 mmol/L (3.5-5.1); Sodium 144 mmol/L (136-145); Total Protein 7.5 g/dL (6.4-8.2)
[2023-09-01 17:28] LABS: Hemoglobin A1C 5.7 % (<5.7)
== END 2023-09-01 16:59 | disposition home or self-care (01) ==
LOC: NCHCN 16:58
PROVIDERS: PCP Family Medicine; Visit Provider Student in an Organized Health Care Education/Training Program
DX: R73.03 Prediabetes (principal); R94.5 Abnormal results of liver function studies
CPT/HCPCS: 80053; 83036

== ENCOUNTER 2024-07-25 13:26 | Outpatient (CLI) | payer OTHER, SELFPAY ==
--- NOTE | 2024-07-25 11:15 | DI.RAD_ITS ---
Exam(s) XR WRIST LT COMP NAVICULAR EXAM: XR WRIST LT COMP NAVICULAR CLINICAL HISTORY: evaluation of worsening wrist, thumb CMC pain.subluxation carpometacarpal. TECHNIQUE: 2D digital imaging was performed of the left wrist. Four images were obtained. Scaphoid , PA, oblique and lateral views were obtained. COMPARISON: No exams were available for comparison FINDINGS: BONES: No acute fracture is present. No bony destructive lesion is seen. JOINTS: The carpal bones are normally aligned. The joint spaces are well maintained. The CMC joint i s unremarkable. No significant arthritic changes are seen. SOFT TISSUE: Normal. IMPRESSION: Unremarkable radiographs of the left wrist. DATA REPOSITORY: RADIATION DOSE DELIVERED:
--- OUTSIDE RECORDS SUMMARY | 2024-07-25 13:31 | XMS_ITS | Encounter Summary ---
Author Organization [facility] Address [address] [place] [address] Care Team Providers Care Diagnostic Medical Sonographer Name Role Phone Davis Jameson MD Primary Care Provider [phone] Encounter Details Date Type Department Care Team (Late st Contact Info) Description 04/22/2022 Lab Requisition [facility] Pathology & Laboratory Medicine - [address] [id number] Reji Jamison MD [address] [place] [address], [address] [place], [place] [id number] Encounter for screening for malignant neoplasm of colon Social History Tobacco Use Types Packs/Day Years Used Date Smoking Tobacco: Never Assessed Sex and Gender Information Value Date Recorded Sex Assigned at Not on file Legal Sex Male 18:51 EST Gender Identity Male 08/12/2021 9:34 EST Sexual Orientation Not on file documented as of this encounter Plan of Treatment Not on file documented as of this encounter Procedures Procedure Name Priority Date/Time Associated Diagnosis Comments SURGICAL PATHOLOGY Today 04/22/2022 10 :10 EDT Encounter for screening for malignant neoplasm of colon documented in this encounter Results * SURGICAL PATHOLOGY (04/22/2022 10:10 EDT) Note to Patient The following pathology results have been interpreted by your pathologist and may be available to you before your health provider has had the opportunity to review them. Please allow time for your provider to receive these results and explore management options, if applicable. 04/23/2022 17:24 EDT [facility] Final Diagnosis A. COLON, 17 CM, POLYP: - Hyperplastic polyp. B. COLON, 20 CM, POLYP: - Hyperplastic polyp. C. COLON, 24 CM, POLYP: - Hyperplastic polyp. 04/23/2022 17:24 [facility] Attestation By the signature below, the attending physician certifies that they have 1) personally conducted a gross and/or microscopic examination of the described specimen(s), and/or personally interpreted the results of laboratory testing of the described specimen(s), and 2) personally rendered or confirmed the above diagnosis. 04/23/2022 17:24 [facility] at 1724 Clinical History Colon cancer screening K62.1 04/23/2022 17:24 [facility] Gross Description A. Received in formalin labelled with proper patient identification (initials K, N) and polyp at 17 cm is a tabares-pink polypoid structure measuring 0.6 x 0.4 x 0.3 cm. Submitted intact in A1. B. Received in formalin labelled with proper patient identification (initials K, N) and polyp at 20 cm is a tabares-pink tissue measuring 0.4 x 0.2 x 0.1 cm. Submitted intact in B1. C. Received in formalin labelled with proper patient identification (initials K, N) and polyp at 24 cm is a tabares-red polypoid tissue measuring 0.6 x 0.4 x 0.4 cm. Bisected and submitted entirely in C1. MARIBELL WATTS(ASCP) 04/22/2022 20:01 04/23/2022 17:24 [facility] Performing Lab [facility] 04/23/2022 17:24 [facility] Scanned Images 04/23/2022 17:24 [facility] Tissue ENTIRE COLON / Unknown 04/22/2022 10:10 EDT 04/22/2022 19:08 EDT Tissue specimen (specimen) COLON STRUCTURE / Unknown 04/22/2022 10:10 EDT 04/22/2022 19:08 EDT Tissue specimen (specimen) COLON STRUCTURE / Unknown 04/22/2022 10:10 EDT 04/22/2022 19:08 EDT us Reji Jamison MD PATHOLOGY ORDERABLES Final Resu lt [facility] [address] [place] [address] documented in this encounter Visit Diagnoses Diagnosis Encounter for screening for malignant neoplasm of colon Special screening for malignant neoplasms, colon documented in this encounter Care Teams Diagnostic Medical Sonographer Relationship Specialty Start Date End Date Davis Jameson MD [address] [place] [id number] PCP - General 06/24/10 documented as of this encounter
--- OUTSIDE RECORDS SUMMARY | 2024-07-25 13:31 | XMS_ITS | Encounter Summary ---
Author Organization [facility] Address [address] [place] [address] Care Team Providers Care Flight Information Expediter Name Role Phone [place] Jameson MD Primary Care Provider [phone] Encounter Details Date Type Department Care Team (Late st Contact Info) Description 03/21/2019 Historical Results Only [facility] Lab - Main [address] [address] Unknown, Provider, Social History Tobacco Use Types Packs/Day Years [...] Procedure Name Priority Date/Time Associated Diagnosis Comments QUANTIFERON TB GOLD PLUS Routine 03/21/2019 11:06 EDT documented in this encounter Results * QUANTIFERON TB GOLD PLUS (03/21/2019 11:06 EDT) [facility] Quantiferon Interpretation Negative NEGAT 03/26/2019 14:55 EDT [facility] Comment: Reference Range: Negative No interferon-gamma response to M. tuberculosis antigens was detected. Infection with M. tuberculosis is unlikely. A single negative result does not exclude infection with M. tuberculosis. In patients at high risk for M. tuberculosis infection, a second test should be considered in accordance with the 2017 ATS/IDSA/CDC Clinical Practive Guidelines for Diagnosis of Tuberculosis in Adults and Children [Neeru LUND et. al. Clin. Infect. Dis. 2017:64(2):111-115]. Results were obtained with the Qiagen QuantiFERON-TB Gold Plus GE[place]IE. TB1 Ag minus Nil 0.08 () IU/mL 03/26/20 14:55 EDT [facility] TB2 Ag minus Nil 0.00 () IU/mL 03/26/20 14:55 EDT [facility] Comment: Test performed [place] [address] 03/21/2019 11:0 6 EDT 03/21/2019 11:06 EDT Narrative [facility] - 03/26/2019 14:55 EDT Does PT Have a Latex Allergy? NO us Provider Unknown CHEMISTRY & BLOOD GAS ORDERA BLES Final Result [facility] documented in this encounter Visit Diagnoses Not on filedocumented in this encounter Care Teams Flight Information Expediter Relationship Specialty Start Date End Date [place] Jameson MD [address] [place] [address] PCP - General 06/24/10 documented as of this encounter
--- OUTSIDE RECORDS SUMMARY | 2024-07-25 13:31 | XMS_ITS | Referral Summary ---
Author Organization [facility] Address [address] [place] [address] Care Team Providers Care Assistant Professor Of Physics Name Role Phone [place] Jameson MD Primary Care Provider [phone] Social History Tobacco Use Types Packs/Day Years Used Date Smoking Tobacco: Never Assessed Sex and Gender Information Value Date Recorded Sex Assigned at Not on file Legal Sex Male 18:51 EST Gender Identity Male 08/12/2021 9:34 EST Sexual Orientation Not on file Plan of Treatment Not on file Insurance [employer] Care Teams Assistant Professor Of Physics Relationship Specialty Start Date End Date [place] Jameson MD [address] [place] [address] PCP - General 06/24/10
--- OUTSIDE RECORDS SUMMARY | 2024-07-25 13:31 | XMS_ITS | Continuity of Care Document ---
Author Organization [facility] Address [address] [place] [address] Care Team Providers Care Medical Center Director Name Role Phone Yonis Diallo Primary Care Physician [phone] Encounter [facility] Date(s): 01/06/24 - 01/06/24 [facility] [address] [place] [address] Discharge Disposition: Home or Self Care Attending Physician: Jason Gar DO Admitting Physician: Jason Gar DO Referring Physician: Jason Gar DO Allergies, Adverse Reactions, Alerts No Known Medication Allergies Assessment and Plan Diagnostic Tests Pending * Varicella IgG Antibody [facility] 01/06/24 * QuantiFERON-TB Gold Plus, WB [facility]MAHA 01/06/24 * Hepatitis B Surface Antibody [facility] 01/06/24 Medications lamoTRIgine 250 mg oral tablet, extended release 250 mg = 1 tab, Oral, Daily, # 30 tab, 0 Refill(s) Start Date: 10/17/23 Status: Ordered Multiple Vitamins oral capsule 1 cap, Oral, Daily, # 90 cap, 0 Refill(s) Start Date: 10/17/23 Status: Ordered simvastatin 20 mg oral tablet 20 mg = 1 tab, Oral, every evening, # 90 tab, 0 Refill(s) Start Date: 10/17/23 Status: Ordered Problem List Condition Confirmation Course Effective Dates Status H ealth Status Informant Cleft palate Confirmed Active Deviated nasal septum Confirmed Active Family history of colon cancer Confirmed Active H/O nasal polypectomy Confirmed Active Hyperlipidemia Confirmed Active Impaired fasting glucose Confirmed Active Mixed nasality Confirmed Active Obstructive sleep apnea syndrome Confirmed Active Snoring Confirmed Active Temporal lobe epilepsy Confirmed Active Social History Social History Type Response Sex Male Patient Care team information Care Team Personnel Name: Yonis Diallo Position: No Access Member Role: Primary Care Physician Address: Address: [facility] [address] [place] [address]- Care Team Related Persons Name: VOLODYMYR GUILLEN Address: Home [address] [place] [phone]
--- OUTSIDE RECORDS SUMMARY | 2024-07-25 13:31 | XMS_ITS | Encounter Summary ---
Author Organization [facility] Address [address] [place] [address] Care Team Providers Care Freight Dispatcher Name Role Phone [place] Jameson MD Primary Care Provider [phone] Encounter Details Date Type Department Care Team (Late st Contact Info) Description 04/17/2021 Lab Requisition [facility] Pathology & Laboratory Medicine - [address] [id number] Outr Resulting Lab, Provider Social History Tobacco Use Types Packs/Day Years [...] Procedure Name Priority Date/Time Associated Diagnosis Comments ZZCOVID-19 TEST [facility] PCR Today 04/17/2021 7:35 EDT COVID-19 TESTING Routine 04/17/2021 7:35 EDT documented in this encounter Results * COVID-19 TEST [facility] PCR (04/17/2021 7:35 EDT) Swab ENTIRE NASOPHARYNX / Unknown 04/17/2021 7:35 EDT 04/17/2021 15:41 EDT us Provider Outr Resulting Lab MICROBIOLOGY - GENER AL ORDERABLES Final Result [facility] [address] [place] [address] * COVID-19 TESTING (04/17/2021 7:35 EDT) COVID-19 rt-PCR Result Negative Negative 04/17/2021 19:11 EDT [facility] Comment: This test has not been FDA cleared or approved. This test has been authorized by FDA under an EUA for use by authorized laboratories. This test has been authorized only for detection of nucleic acid from 2019-nCoV, not for any other viruses or pathogens. This test is only authorized for the duration of the declaration that circumstances exist justifying the authorization of emergency use of in vitro diagnostic tests for detection and/or diagnosis of 2019-nCoV under section 564(b)(1) of Act, 21 U.S.C ?? 360bbb-3(b) (1), unless the authorization is terminated or revoked sooner. Negative results do not preclude 2019-nCoV infection and should not be used as the sole basis for treatment or other patient management decisions. Negative results must be combined with clinical observations, patient history, and epidemiological information. Performed on the Decision Rocket Fusion instrument Performing Lab [place] [facility] 04/17/2021 19:11 EDT [facility] Swab 04/17/2021 7:35 EDT 04/17/2021 15:41 EDT us Provider Outr Resulting Lab MICROBIOLOGY - GENER AL ORDERABLES Final Result [facility] [address] [place] [address] documented in this encounter Visit Diagnoses Not on filedocumented in this encounter Care Teams Freight Dispatcher Relationship Specialty Start Date End Date [place] Jameson MD [address] [place] [phone] PCP - General 06/24/10 documented as of this encounter
--- OUTSIDE RECORDS SUMMARY | 2024-07-25 13:31 | XMS_ITS | Encounter Summary ---
Author Organization [facility] Address [address] [place] [address] Care Team Providers Care Music Supervisor Name Role Phone [place] Jameson MD Primary Care Provider [phone] Encounter Details Date Type Department Care Team ([facility] Contact Info) Description 08/12/2021 Lab Requisition [facility] Lab - Main [place] [address] [place] [id number] Health, [facility] Employee Encounter for other general examination Social History Tobacco Use Types Packs/Day Years [...] Priority Date/Time Associated Diagnosis Comments ZZCOVID-19 TEST [facility] PCR Today 08/12/2021 13:54 EST Encounter for other general examination COVID-19 TESTING Today 08/12/2021 13:5 4 EST Encounter for other general examination ZZCOVID-19 TESTING ([facility] Today 08/12/2021 Encounter for other general examination documented in this encounter Results * COVID-19 TEST [facility] PCR (08/12/2021 13:54 EST) Swab 08/12/2021 13:5 4 EST 08/12/2021 13:54 EST us [facility] Employee Health MICROBIOLOGY - GENERA L ORDERABLES Final Result [facility] [address] [place] [address] * COVID-19 TESTING (08/12/2021 13:54 EST) COVID-19 rt-PCR Result Negative Negative 08/13/2021 16:20 EST [facility] Comment: This test has not [...] history, and epidemiological information. Performed on the Kizoom Fusion instrument This is an appended report. ??These results have been appended to a previously preliminary verified report. Performing Lab [place] [facility] 08/13/2021 16:20 EST [facility] Swab 08/12/2021 13:5 4 EST 08/12/2021 13:54 EST [facility] Employee [facility] MICROBIOLOGY - GENERA L ORDERABLES Final Result [facility] [address] [place] [address] * COVID-19 TESTING ([facility]) (08/12/2021) Performing Lab [facility] Lab 08/12/2021 13:54 EST [facility] Swab 08/12/2021 08/12/2021 13: 12 EST Narrative [facility] - 08/12/2021 13:54 EST [facility] Tier 1 Covid test [facility] MICROBIOLOGY - GENERA L ORDERABLES Final Result [facility] [address] [place] [address] documented in this encounter Visit Diagnoses Diagnosis Encounter for other general examination documented in this encounter Care Teams Music Supervisor Relationship Specialty Start Date End Date [place] Jameson MD [address] [place] [address] PCP - General 06/24/10 documented as of this encounter
--- OUTSIDE RECORDS SUMMARY | 2024-07-25 13:31 | XMS_ITS | Encounter Summary ---
Author Organization [facility] Address [address] [place] [address] Care Team Providers Care Asp Net Mvc Developer Name Role Phone [place] Jameson MD Primary Care Provider [phone] Encounter Details Date Type Department Care Team (Late st Contact Info) Description 01/06/2024 Lab Requisition [facility] Pathology & Laboratory Medicine - [address] [address] Outr Resulting Lab, Provider Social History Tobacco [...] Procedure Name Priority Date/Time Associated Diagnosis Comments HEPATITIS B SURFACE ANTIBODY Routine 01/06/2024 10:19 EDT VARICELLA IGG ANTIBODY Routine 01/06/2024 10:19 EDT documented in this encounter Results * HEPATITIS B SURFACE ANTIBODY (01/06/2024 10:19 EDT) Hep B Surface Ab, Quantitative 111.9 See Note mIU/mL 01/09/2024 12:15 EDT [facility] Comment: Reference Range for Hep B Surface Ab, Quant: Positive: >= 10.0 mIU/mL Negative: ??< 10.0 mIU/mL Patient is presumed to be immune to infection with Hepatitis B Virus. Hep B Surface Ab, Qualitative Positive See Note 01/09/2024 12:15 EDT [facility] Comment: Reference Range for Hep B Surface Ab, Qual: Unvaccinated: ??Negative Vaccinated: ??Positive Blood VENOUS BLOOD / Unknown 01/06/2024 10:19 EDT 01/06/2024 22:04 EDT us Provider Outr Resulting Lab CHEMISTRY & BLOOD GA S ORDERABLES Final Result Performing Organization Address City/[facility]/ZIP Co de Phone Number [facility] [address] [place] [address] * VARICELLA IGG ANTIBODY (01/06/2024 10:19 EDT) Varicella IgG Ab Positive See Note 01/09/2024 9:35 EDT [facility] Comment:Presence of detectab le Varicella Zoster virus IgG antibodies. Blood VENOUS BLOOD / Unknown 01/06/2024 10:19 EDT 01/06/2024 22:04 EDT us Provider Outr Resulting Lab IMMUNOLOGY AND SEROL OGY ORDERABLES Final Result Performing Organization Address [facility] Co de Phone Number [facility] [address] [place] [address] documented in this encounter Visit Diagnoses Not on filedocumented in this encounter Care Teams Asp Net Mvc Developer Relationship Specialty Start Date End Date [place] Jameson MD [address] [place] [address] PCP - General 06/24/10 documented as of this encounter
--- OUTSIDE RECORDS SUMMARY | 2024-07-25 13:31 | XMS_ITS | Encounter Summary ---
Author Organization [facility] Address [address] [place] [address] Care Team Providers Care Cna Ltc Name Role Phone [place] Jameson MD Primary Care Provider [phone] Reason for Visit * Reason Comments COVID-19 employee testing Encounter Details Date Type Department Care Team (Late st Contact Info) Description 08/12/2021 9:30 EST Nurse Only [facility] [address] [place] [id number] Nurse, [facility] Screening for viral disease (Primary Dx) Social History Tobacco Use Types Packs/Day Years Used Date Smoking Tobacco: Never Assessed Sex and Gender Information Value Date Recorded Sex Assigned at Not on file Legal Sex Male 18:51 EST Gender Identity Male 08/12/2021 9:34 EST Sexual Orientation Not on file documented as of this encounter Progress Notes * Josias Goss RN - 08/12/2021 0930 EST Swab obtained from employee for COVID testing. JOSIAS GOSS RN 08/12/21 9:43 documented in this encounter Plan of Treatment Not on file documented as of this encounter Visit Diagnoses Diagnosis Screening for viral disease- Primary Special screening examination for unspecified viral disease documented in this encounter Care Teams Cna Ltc Relationship Specialty Start Date End Date [place] Jameson MD [address] [place] [phone] PCP - General 06/24/10 documented as of this encounter
--- OUTSIDE RECORDS SUMMARY | 2024-07-25 13:31 | XMS_ITS | Encounter Summary ---
Author Organization [facility] Address [address] [place] [address] Care Team Providers Care Drupal Programmer Name Role Phone Unknown, Provider Primary Care Provider Unava ilable Encounter Details Date Type Department Care Team (Late st Contact Info) Description 06/22/2010 Results Only [facility] Laboratory Services - [facility] ([facility]) [address] [place] [address] Mando Yarbrough MD [address] [place] [address] Social History Tobacco Use Types Packs/Day Years [...] Priority Date/Time Associated Diagnosis Comments SURGICAL PATHOLOGY Routine 06/22/2010 0:00 EST documented in this encounter Results * SURGICAL PATHOLOGY (06/22/2010 0:00 EST) Pathology Report: SURGICAL PATHOLOGY REPORT ? Reports generated via electronic interface contain original data; ? however they are lacking the format of the original report. ? Caution should be taken when reading/interpreti ng unformatted reports. ? Name: ? MINDY, SWATI ? Accession #: ? [id number] ? : ? 1975 (Age: 35) ??M ? Collect Date: ? 06/22/2010 ? Location: ? [facility] ? Receive Date: ? 06/22/2010 ? Provider: MANDO YARBROUGH MD ? Copy to: FABIAN GIORDANO MD ? Final Pathologic Diagnosis: ? A. ?Nasal polyp, left, polypectomy: ? 1. ?Inflamed nasal polyp with prominent eosinophils. ? B. ?Ethmoid, left, biopsy: ? 1. ?Inflamed nasal polyp with prominent eosinophils. ? C. ?Ethmoid, right, biopsy: ? 1. ?Inflamed nasal polyp with prominent eosinophils. ? Document reviewed and electronically signed by: ? NARESH S JOSE G MD ? Report ??Date: 06/24/2010 16:06 ? By the signature above, the attending physician certifies that he/she has ? personally conducted a gross and/or microscopic examination of the described ? specimens and rendered or confirmed the above diagnosis. ? Specimen(s) Received: ? A. ?Left nasal polyp ? B. ? Left ethmoid ? C. ? Right ethmoid ? Clinical History: ? Deviated nasal septum, nasal septal perforation, pansinusitis, nasal polyp ? Gross Description: ? Received in formalin labelled Killam, Swati and left nasal polyp ?? are four tabares-white to yellow, irregular soft tissue fragments ranging from 0.4 x 0.3 x 0.3 cm to 4.0 x 1.6 x 1.0 cm. ??The cut surfaces of the largest tissue are yellow and gelatinous. ??The surgical margin is inked. ??The specimen is serially sectioned and client account representative sections are submitted as follows: ? BLOCK LAN ? A1 ?Smaller tissues ? A2,A3 ?Dairy Farm Operator largest tissue ? Received in formalin labelled Killam, Swati and left ethmoid is a ? tabares-pink, 1.4 x 0.8 x 0.3 cm portion of mucosa. ??Separately received is a 1.2 x 0.6 x 0.1 cm portion of cartilage material. ??The specimen is submitted intact as (B). ? Received in formalin labelled Killam, Swati and right ethmoid are two ?? tabares-pink, irregular soft tissue fragments measuring 0.4 x 0.3 x 0.2 cm and 0.6 x 0.4 x 0.3 cm. ??The specimen is entirely submitted as (C). /[facility] ? End of Report ? [facility] 06/22/2010 06/22/2010 17: 25 EST us Mando Yarbrough MD PATHOLOGY ORDERABLES Final Resul t [facility] [address] [place] [address] documented in this encounter Visit Diagnoses Not on filedocumented in this encounter Care Teams Drupal Programmer Relationship Specialty Start Date End Date Unknown, Provider, PCP - General 06/22/10 06/23/10 documented as of this encounter
--- OUTSIDE RECORDS SUMMARY | 2024-07-25 13:31 | XMS_ITS | Clinical Summary ---
Author Organization [facility] Address [address] [place] [address] Care Team Providers Care Revenue Audit Clerk Name Role Phone [place] Jameson MD Primary Care Provider [phone] Social History Tobacco Use Types Packs/Day Years Used Date Smoking Tobacco: Never Assessed Sex and Gender Information Value Date Recorded Sex Assigned at Not on file Legal Sex Male 18:51 EST Gender Identity Male 08/12/2021 9:34 EST Sexual Orientation Not on file Plan of Treatment Health Maintenance Due Date Last Done Comments Hepatitis C Screen 1975 Hepatitis B Vaccine (1 of 3 - 19+ 3-dose series) 04/25 COVID-19 Vaccine ( season) 2024 Insurance HE[employer] PLANS Care Teams Revenue Audit Clerk Relationship Specialty Start Date End Date Davis Jameson MD [address] [place] [phone] PCP - General 06/24/10
--- OUTSIDE RECORDS SUMMARY | 2024-07-25 13:31 | XMS_ITS | Data Portability ---
Author Organization [place] - [facility] Address [place] [address] Assessment No assessment recorded. Plan of Treatment Reminders Order Date Submit Date Provider Last Modified By Organization Details Last Modified Time Details Appointments None recorded . Lab HbA1c (hemoglo bin A1c), blood 024 09/01/19 [facility] (Registration ), [address] [place] [address] [place], [address], 4 09:35:05 CMP, serum or plasma - 1 LAV, 1 SST 024 09/01/19 [facility] Laboratory (Registration ), [address] [place] [address] [place], [address], 4 16:37:41 Referral None recorded . Procedures None recorded . Surgeries None recorded . Imaging None recorded . Medication Orders None recorded . Patient TargetsNo targets recorded. Patient Instructions Encounter Date Encounter Id Patient Instructions Last Modified By Organization Details Last Modified Time 09/01/2023 [id number] Would guide you to go have dilated exam. Staying active is important, I recommend core training in all planes twice per week for 10-minutes Do sign up for the patient portal. [email or web address] Not available 09/01/2023 13:50:15 Reason for Referral None Reported. Results Created Date Observation Date Name Description Value Unit Range Abnormal Flag Note LastModifiedBy Organization Detail LastModifiedTime 09/01/19 24 09/01/2023 COMPR EHENS CESAR METAB OLIC PANEL calcium 9.5 mg/dL 8.5-10 .1 normal Not Available [address] [place], [address] 09/01/2023 16:13:52 09/01/19 24 09/01/2023 COMPR EHENS CESAR METAB OLIC PANEL glucose 104 mg/dL 74-106 normal Not Available Deng figueroa [address] [place], [address] 09/01/2023 16:13:52 09/01/19 24 09/01/2023 COMPR EHENS CESAR METAB OLIC PANEL BUN 10 mg/dL 7-18 normal Not Available Deng figueroa [address] [place], [address] 09/01/2023 16:13:52 09/01/19 24 09/01/2023 COMPR EHENS CESAR METAB OLIC PANEL creatinine 0.9 mg/dL 0.70-1 .30 normal Not Available [address] [place], [address] 09/01/2023 16:13:52 09/01/19 24 09/01/2023 COMPR EHENS CESAR METAB OLIC PANEL estimated GFR 106.01 mL/min /1.73m 2 The eGFR is calcu lated from a serum creat inine using the CKD-E PI 2020 equat ion. Other varia bles requi red for the equat ion are gende r and age; this equat ion does not inclu de a race coeff icien t. This equat ion has simil ar overa ll perfo rmanc e to previ ous equat ions excep t value s may diffe r, in parti cular , in patie nts with highe r value s of eGFR and young er-ag ed adult s. Not Available [address] [place], [address] 09/01/2023 16:13:52 09/01/19 24 09/01/2023 COMPR EHENS CESAR METAB OLIC PANEL total protein 7.5 g/dL 6.4-8. 2 normal Not Available [address] [place], [address] 09/01/2023 16:13:52 09/01/19 24 09/01/2023 COMPR EHENS CESAR METAB OLIC PANEL albumin 4.4 g/dL 3.4-5. 0 normal Not Available [address] [place], [address] 09/01/2023 16:13:52 09/01/19 24 09/01/2023 COMPR EHENS CESAR METAB OLIC PANEL bilirubin, total 0.3 mg/dL 0.2-1. 0 normal Not Available [address] [place], [address] 09/01/2023 16:13:52 09/01/19 24 09/01/2023 COMPR EHENS CESAR METAB OLIC PANEL alk phos 112 U/L 46-116 normal Not Available [address] [place], [address] 09/01/2023 16:13:52 09/01/19 24 09/01/2023 COMPR EHENS CESAR METAB OLIC PANEL sodium 144 mmol/ L 136-14 5 normal Not Available [address] [place], [address] 09/01/2023 16:13:52 09/01/19 24 09/01/2023 COMPR EHENS CESAR METAB OLIC PANEL potassium 4.1 mmol/ L 3.5-5. 1 normal Not Available [address] [place], [address] 09/01/2023 16:13:52 09/01/19 24 09/01/2023 COMPR EHENS CESAR METAB OLIC PANEL chloride 106 mmol/ L 98-107 normal Not Available [address] [place], [address] 09/01/2023 16:13:52 09/01/19 24 09/01/2023 COMPR EHENS CESAR METAB OLIC PANEL CO2 29.5 mmol/ L 21.0-3 2.0 normal Not Available [address] [place], [address] 09/01/2023 16:13:52 09/01/19 24 09/01/2023 COMPR EHENS CESAR METAB OLIC PANEL anion gap 8.5 mmol/ L 3-11 normal Not Available [address] [place], [address] 09/01/2023 16:13:52 09/01/19 24 09/01/2023 COMPR EHENS CESAR METAB OLIC PANEL AST 15 U/L 15-37 normal Not Available Deng figueroa [address] [place], [address] 09/01/2023 16:13:52 09/01/19 24 09/01/2023 COMPR EHENS CESAR METAB OLIC PANEL ALT 26 U/L 16-63 normal Not Available Deng figueroa [address] [place], [address] 09/01/2023 16:13:52 09/01/19 24 09/01/2023 HEMOG LOBIN A1C hemoglobin A1C 5.7 % <5.7 Refer ence Range s <5.7 Erika l 5.7-6 .4% Predi abete s 6.5% or great er Diagn ostic for diabe soo (if confi rmed) Refer ences : 1. Ameri can Diabe soo Assoc iatio n. Clas sific ation and Diagn osis of Diabe soo. Diabe soo Care 2019 Jul;4 2(Sup pleme nt 1):S1 3-s28 . Not Available [address] [place], [address] 09/01/2023 17:34:05 04/01/20 24 07/24/2020 imagi ng/di agnos tic resul t No observ ation record ed. [email or web address] Not Available 04/01 23:18:16 04/01/20 24 02/19/2020 imagi ng/di agnos tic resul t No observ ation record ed. [email or web address] Not Available 04/01 23:18:26 04/01/20 24 08/15/2020 imagi ng/di agnos tic resul t No observ ation record ed. [email or web address] Not Available 04/01 23:18:27 04/01/20 24 08/15/2020 imagi ng/di agnos tic resul t No observ ation record ed. [email or web address] Not Available 04/01 23:18:28 04/01/20 24 09/22/2021 imagi ng/di agnos tic resul t No observ ation record ed. [email or web address] Not Available 04/01 23:18:30 04/01/20 24 09/06/2022 imagi ng/di agnos tic resul t No observ ation record ed. [email or web address] Not Available 04/01 23:18:31 04/01/20 24 05/18/2022 US, renal No observ ation record ed. [email or web address] Not Available 04/01 23:18:32 04/01/20 24 08/14/2020 imagi ng/di agnos tic resul t No observ ation record ed. [email or web address] Not Available 04/01 23:18:48 04/01/20 24 08/14/2020 imagi ng/di agnos tic resul t No observ ation record ed. [email or web address] Not Available 04/01 23:18:50 04/01/20 24 01/29/2020 imagi ng/di agnos tic resul t No observ ation record ed. [email or web address] Not Available 04/01 23:19:07 04/01/20 24 04/26/2023 imagi ng/di agnos tic resul t No observ ation record ed. [email or web address] Not Available 04/01 23:19:12 04/01/20 24 05/04/2023 imagi ng/di agnos tic resul t No observ ation record ed. [email or web address] Not Available 04/01 23:19:13 04/01/20 24 02/01/2020 imagi ng/di agnos tic resul t No observ ation record ed. [email or web address] Not Available 04/01 23:19:14 04/01/20 24 07/24/2020 imagi ng/di agnos tic resul t No observ ation record ed. [email or web address] Not Available 04/01 23:19:15 07/25/1907/25/2024 x-ray imagi ng repor t Patien t Name: Gerhard Martinez Urszula Unit #: [id number] Loc: DI Orderi ng Provid er: Vicente alonso,Sathya Gonzalez t #: [id number] Status : PRE CLI Primar y Care Provid er: Davis Bajwa Date of Exam: Sex: M Admharpal ion Date: : 1974 Age: 49 Exam(s ) XR WRIST LT COMP NAVICU LAR EXAM: XR WRIST LT COMP NAVICU LAR CLINIC AL HISTOR Y: evalua tion of worsen ing wrist, thumb CMC pain.s ubluxa tion carpom etacar pal. TECHNI QUE: 2D digita l imagin g was perfor med of the left wrist. Four images were obtain ed. Scapho id, PA, obliqu e and latera l views were obtain ed. COMPAR INDRA: No exams were availa ble for compar indra FINDIN GS: BONES: No acute fractu re is presen t. No bony destru ctive lesion is seen. JOINTS : The carpal bones are normal ly aligne d. The joint spaces are well mainta ined. The CMC joint is unrema rkable . No signif icant arthri tic change s are seen. SOFT TISSUE : Normal . IMPRES LUIS MIGUEL: Unrema rkable radiog raphs of the left wrist. DATA REPOSI TORY: RADIAT ION DOSE DELIVE RED: Ordere d By: Sathya Herrera M.D. CC: ------ ------ ------ ------ ------ ------ ------ ------ ------ ------ ------ ------ - Dictat ed By: Flako Jamison M.D. 1208 1208 Transc ribed By: Flako Jamison 1208 This is privil eged, confid ential inform ation intend ed only for the provid er named. Any use or distri bution by any person other than this provid er is strict ly prohib ited. If you receiv e this report in error, please notify us immedi ately at and return the origin al report to us at the addres s above. Thank- you. INTERFACE [facility] [address], [place], [address] 07/25/2024 12:20:46 Result Notes None recorded. Problems Name Problem SNOMED Code Status Onset Date Resolution Date Notes Provider Name and Address Organization Details Recorded Time Localiza tion-rel ated symptoma tic epilepsy 851898569 Active 201412/10/19 22 - Comments only - Davis Bajwa MD - controll ed with lamotrig ine. Refilled today Problem Code: G40.209; Problem Code Type: ICD-10; Not Available [facility] 3 04:01:43 Hyperlip idemia 18828791 Completed 201404/13/2023 11/22/19 19 - Comments only - Davis Bajwa MD - tolerati ng lower dose statin for primary preventi on. Reconsid er dosing when risk higher. 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 Discusse d diet, regular exercise . He agrees to colonosc opy referral . Blood pressure is a risk factor, discusse d diet, salt. Check renal fxn, TSH, follow h/o prediabe soo, A1c with labs today. COntinue simvasta tin for lipids. Problem Code: Z00.00; Problem Code Type: ICD-10; Not Available [facility] 3 04:01:44 Obstruct cesar sleep apnea syndrome 10553996 Active 2018 Most recent sleep consult 10/19/2023 w/MAVIS [facility]. Pt. generall y consiste nt with CPaP except very recently due to dental procedur e. Pt. w/chroni c post work fatigue, often falling asleep on couch after work. Advised to increase sleep from 6 to 7 hours. Will consider trial of Modafini l if pt. remains excessiv anni sleepy despite sleep increase of 2-3 month period. MARIBELL ORTIZ [address], [place], [address] , [place] - [facility]. 4 13:38:03 Prediabe soo 082099136 Active 201907/07/20 20 - Comments only - Davis Bajwa MD - no symptoms , repeat A1c with labs Problem Code: R73.03; Problem Code Type: ICD-10; Not Available [facility] 3 04:01:44 Pain in thoracic spine 348374982 Completed 201904/13/2023 Problem Code: M54.9; Problem Code Type: ICD-10; Not Available [facility] 4 05:37:35 Disorder of kidney and/or ureter 314834446 Completed 202106/28/2023 12/10/19 22 - Comments only - Davis Bajwa MD - Incident al on MRI last year, never got u/s follow up. Ordered today. Problem Code: N28.89; Problem Code Type: ICD-10; Not Available [facility] 4 05:37:35 Elevated blood-pr essure reading without diagnosi s of hyperten luis miguel 622777963 Completed 202106/28/2023 Problem Code: R03.0; Problem Code Type: ICD-10; Not Available [facility] 4 05:37:35 Hypothyr oidism 32473927 Completed 201912/08/2021 Problem Code: E03.9; Problem Code Type: ICD-10; Not Available [facility] 3 04:01:51 Contrace ption care manageme nt Completed 201507/27/2017 Problem Code: Z30.9; Problem Code Type: ICD-10; Not Available [facility] 3 04:01:52 Impaired fasting glycemia 125884856 Completed 201509/13/2019 Problem Code: R73.01; Problem Code Type: ICD-10; Not Available [facility] 3 04:01:52 Pneumoni a 521988632 Completed 201404/21/2015 Problem Code: J18.9; Problem Code Type: ICD-10; Not Available [facility] 3 04:01:53 Adult health examinat ion Completed 201812/08/2021 Problem Code: Z00.00; Problem Code Type: ICD-10; Not Available [facility] 3 04:01:54 Tubercul osis screenin g Completed 201401/11/2016 Problem Code: Z11.1; Problem Code Type: ICD-10; Not Available [facility] 3 04:01:54 Family history of cancer of colon 188120786 Completed 201304/21/2015 Not Available [facility] 3 04:01:55 Adult health examinat ion Completed 201401/11/2016 Problem Code: Z00.00; Problem Code Type: ICD-10; Not Available [facility] 3 04:01:55 Acute upper respirat ory infectio n 56150331 Completed 201501/11/2016 Problem Code: J06.9; Problem Code Type: ICD-10; Not Available [facility] 3 04:01:57 Pain in throat 860237824 Completed 201812/08/2021 Problem Code: R07.0; Problem Code Type: ICD-10; Not Available [facility] 3 04:01:57 Screenin g for disorder Completed 201804/13/2023 10/19/19 19 - Comments only - Davis bales's symptoms of snoring with nighttim e awakenin gs with breathho lding and gasping along with sleepine ss while driving and occasion al non-resp orative sleep are consiste nt with ALMA. His symptoms , particul jacques his fatigue while driving, warrant further evaluati on and referral for sleep study. Contribu ting and causativ e factors of sleep apnea were discusse d. The patient was encourag ed to call if any issues arise prior to his next visit. Problem Code: Z13.89; Problem Code Type: ICD-10; Not Available [facility] 3 04:01:58 Hyperlip idemia 50676296 Completed 201304/21/2015 Not Available [facility] 3 04:01:59 Temporal lobe epilepsy 148433467 Completed 200604/21/2015 Not Available [facility] 3 04:01:59 Acquired renal cystic disease 577040576 Active 2021 4.4 x 6 cm renal cyst 11/2021. Problem Code: N28.1; Problem Code Type: ICD-10; [address], [place] [address] , [facility] 4 09:48:39 [facility] hyperten luis miguel 52931922 Active 2021 Problem Code: I10; Problem Code Type: ICD-10; Not Available [facility] 4 05:37:35 Liver function tests outside referenc e range 382060327 Active [address], [place] [address] , [facility] 4 13:36:48 Epilepsy 72951787 Active [address], [place] [address] , [facility] 4 13:37:02 Problem Notes None recorded. Procedures Surgical History None recorded. Imaging Results Imaging Date Name Status LastModified by [facility] Details LastModified Time 07/24/2020 imaging/diag nostic result completed Information not available 04/01/2024 23:18:16 02/19/2020 imaging/diag nostic result completed Information not available 04/01/2024 23:18:26 08/15/2020 imaging/diag nostic result completed Information not available 04/01/2024 23:18:27 08/15/2020 imaging/diag nostic result completed Information not available 04/01/2024 23:18:28 09/22/2021 imaging/diag nostic result completed Information not available 04/01/2024 23:18:30 09/06/2022 imaging/diag nostic result completed Information not available 04/01/2024 23:18:31 05/18/2022 US, renal completed Information no t available 04/01/2024 23:18:32 08/14/2020 imaging/diag nostic result completed Information not available 04/01/2024 23:18:48 08/14/2020 imaging/diag nostic result completed Information not available 04/01/2024 23:18:50 01/29/2020 imaging/diag nostic result completed Information not available 04/01/2024 23:19:07 04/26/2023 imaging/diag nostic result completed Information not available 04/01/2024 23:19:12 05/04/2023 imaging/diag nostic result completed Information not available 04/01/2024 23:19:13 02/01/2020 imaging/diag nostic result completed Information not available 04/01/2024 23:19:14 07/24/2020 imaging/diag nostic result completed Information not available 04/01/2024 23:19:15 07/25/2024 x-ray imaging report completed INTERFACE [facility] [address] [place], [address] 07/25/2024 12:20:46 Procedure Notes None recorded. Medical Equipment None Reported. Medications Name Sig Start Date Stop Date Status Note LastModified by Organization Details LastModified Time cyclobenzapr ine 10 mg tablet Take 1 tablet by mouth three times a day as needed for muscle spasm 04/13 completed Not Available Not Available Not Available amoxicillin 500 mg capsule active Not Available Not Available Not Available lamotrigine 200 mg tablet Take 1 tablet every day by oral route. 2023 active Not Available Not Available Not Avai lable simvastatin 20 mg tablet Take 1 tablet by mouth once a day active Not Available Not Available No t Available indomethacin 25 mg capsule take 1 capsule three times a day prn 03/18 completed Not Available Not Available Not Available Nasonex 50 mcg/actuatio n Cassatt 2 sprays in each nostril 1x/day 11/29 completed Not Available Not Available Not Available levofloxacin 750 mg tablet Take 1 by mouth daily 03/14 completed Not Available Not Available Not Available fluticasone propionate 50 mcg/actuatio n nasal spray,suspen luis miguel active Not Available Not Available Not Available lamotrigine 100 mg tablet Take 1/2 tablet by mouth once a day with 200mg active Not Available Not Available No t Available loratadine 10 mg tablet 1 qd 07/28 completed Not Available Not Available Not Available multivitamin 1 tab a day 2013 active Not Available Not Available Not Avai lable Multivitamin s 1 TAB daily 2013 active Not Available Not Available Not Avai lable lamotrigine 50 mg disintegrati ng tablet Take 1 tablet by mouth once a day 09/26 completed Not Available Not Available Not Available Vitals Date Recorded Body height Body mass index (BMI) Body weight Body temperature Oxygen saturation Oxygen saturation in Arterial blood by Pulse oximetry Heart rate Systolic blood pressure Diastolic blood pressure Provider Name and Address Organization Details Last Updated DateTime 4 170.815 cm 25.4 kg/m2 95428.2 7 g 97.9 [degF] 99 % 99 % 98 /min 138 mm[Hg] 82 mm[Hg] MANSOOR SMITH [place] [facility] 4 12:57:54 Social History None recorded. Functional Status None recorded. Mental Status None recorded. Family History Relationship Description Onset Age of this Age Resolved Age Notes LastModified by Organization Details LastModified Time Father Family history of Hypercholest erolemia claire Not available 2022 04:00:38 Father Family history of Hypertension [email or web address] Not available 04/2023 04:00:38 Father Family history of hyperthyroid ism [email or web address] Not available 2022 04:00:39 Notes:*Problem: Maternal gra ndfather w/diabetes & colon cancer. age 53 if colon cancer. Father has hypothyroidism, hypertension, & hyperlipidemia. Has had colon polyps. Mother has GERD. Medical History No medical history recorded. Immunizations Vaccine Type Date Status Note Provider Nam e and Address Organization Details Recorded Time MMR 3 completed Not Available [facility] 05/27/2023 03:49:59 Tdap 0 completed Not Available [facility] 05/27/2023 03:50:01 Novel Caicmaeqn-Q4X6-46 , all formulations 9 completed Not Available [facility] 05/27/2023 03:50:02 Td(adult) unspecified formulation 5 completed Not Available [facility] 05/27/2023 03:50:03 Influenza, split virus, trivalent, preservative 5 completed Not Available [facility] 05/27/2023 03:50:04 Influenza, split virus, quadrivalent, preservative 8 completed Not Available [facility] 05/27/2023 03:50:05 Hep B, unspecified formulation 4 completed Not Available [facility] 05/27/2023 03:50:07 Hep B, unspecified formulation 3 completed Not Available [facility] 05/27/2023 03:50:07 Hep B, unspecified formulation 3 completed Not Available [facility] 05/27/2023 03:50:08 influenza, unspecified formulation 7 completed Not Available [facility] 05/27/2023 03:50:09 influenza, unspecified formulation 4 completed Not Available [facility] 05/27/2023 03:50:09 influenza, unspecified formulation 9 completed Not Available [facility] 05/27/2023 03:50:09 influenza, unspecified formulation 0 completed Not Available [facility] 05/27/2023 03:50:10 Past Encounters Encounter ID Performer Location Encounter Start Date Encounter Closed Date Diagnosis/Indication Diagnosis SNOMED-CT Code Diagnosis ICD10 Code Diagnosis Note [id number] MARIBELL ORTIZ [facility] [address] [place] [address] 09/01/2023 12:46:50 09/01/2023 13:56:39 Liver function tests outside reference range 452222526 R94.5 We will check LFT's to ensure that the elevations resolved s/p lymphadeni tis 04/2023. Obstructiv e sleep apnea syndrome 74555341 G47.33 Treated and compliant w/CPAP. Epilepsy 02808009 G40.90 9 Consistent ly taking his medication and w/out recurrence of seizure. Continue Lamotrigen e. Essential hypertension 66778739 I10 110-130's/ 70-s-80's range over mulitple OV. Advised pt. if we regularly see > 130/80 starting treatment would be a good idea given his prediabete s, HLD status. Dysfunctio n of eustachian tube 93462052 H69.91 Pt. could trial daily loratadine as he does have some periods of more profound allergies when he takes this and other times no so much. He could then add on fluticason e that ENT Rx'd for him. Pt. w/out great concern about this and not terribly effected by higher frequency, mild hearing loss on right side. Prediabetes 271136185 R7 3.03 Will send out Hga1c to [facility] as our machine is not yet recalibrat ed or fixed. We will continue to check twice per years given his stable and low Hga1c around 5.7-5.9%. Health Concerns Section Related Observation LastModified by Organization Detai ls LastModified Time None Recorded Concern Status LastModified by Organization Details LastModified Time None Recorded Advance Directives Directive None Recorded Payers Encounter Date Sequence Insurance Name Policy Number Policy Hodges Covered Member ID Hodges Member ID Guarantor Name 09/01/2023 1 [employer] ([employer]) [id number] Alex Martinez [id number] Alex Martinez Notes Date Note Type Note Provider Name and Address Organization Details Recorded Time 09/01/2023 text/html Pt, 48-M, hx of temporal lobe epilepsy, ETD, Family hx. of colon cancer w/pat. grandfather at age 54 due to complications, in for meet and greet to establish care with myself as his PCP, Dr. Bajwa is leaving in October 2023. Epilepsy: Stable with lamotrigene. Pt. had breakthrough seizure in 2019 due to medication inadherence w/low Lamotrigene level. HE follows with [facility] neurlogy. HLD: Treating with Simvastatin 20 mg. He has been on a statin since he was in his 20's. He started on Tri-cor, but has been on lipitor since maybe his 30's. Pt. denies any family history of liver disease. Elevated ALT/AST 73 and 45 respectively 05/04/2023. Prior level was 36/21 respectively. Pt. had lymphadenitis in April. He had a cold and then developed abdominal pain. Cystic Kidney Disease: PT with 4.4 x 6 cm renal cyst on his right kidney. This has been stable under multiple imaging modality since his seizure episode in 2019. ALMA: Treating ALMA w/Sun Diallo. Been using CPAP age 20. Prediabetes: Last Hga1c 5.8 in 04/2023. No frequency of urination, no numbness. Just using diet to control this. Walks a bit for exercise. HTN: Pt. has NEVER taken a blood pressure medication. Review of past BP shows 110''s-140/70-low 80's diastolic. Pt. reports, no headaches. He does report some loss of vision and maybe needs new glasses. [address] Dr, [place], [place], [id number], [facility]. 09/01/2023 14:10:48
== END 2024-07-25 13:46 ==
LOC: DI 13:26
PROVIDERS: PCP Family Medicine; Visit Provider Student in an Organized Health Care Education/Training Program
DX: S63.042A Subluxation of carpometacarpal joint of left thumb, initial encounter (principal); X58.XXXA Exposure to other specified factors, initial encounter
CPT/HCPCS: 73110

== ENCOUNTER 2024-08-09 02:47 | Outpatient (CLI) | payer OTHER, SELFPAY ==
--- NOTE | 2024-08-09 07:30 | DI.MRI_ITS ---
Exam(s) MR UPPER JOINT LT WO EXAM: MR UPPER JOINT LT WO CLINICAL HISTORY: pain and swelling of left wrist and thumb base,SUBLUXATION CARPOMETACARPAL. TECHNIQUE: Multiplanar multisequence MRI was performed. COMPARISON: None. FINDINGS: BONES: There is no fracture nor bone contusion. No evidence of avascular necrosis. JOINTS: There are moderate degenerative changes in 1st carpometacarpal joint and there is a moderate size joint effusion of this articulation evident. This joint effusion extends dorsally subjacent to the extensor or carpi radialis longus and brevis tendons. The joint effusion also underlies the abdu ctor pollicis longus tendon. There is, however, no actual tenosynovitis of these tendons nor of the other extensor tendons on the dorsal aspect of the wrist. There is a small degenerative subarticular cyst in the base of the thumb metacarpal as well as within the medial aspect the trapezium. There i s mild cartilage loss. Mild osteophyte. The lateral collateral ligament at this level appears intac t. There is some thinning of the medial collateral ligament of this articulation. There is mild chondromalacia evident in the radiocarpal joint. Also small joint effusion at this lev el. The scapholunate articulation and ligament appear unremarkable.. TENDONS: Flexors: Unremarkable. No tears nor tenosynovitis. Extensors: Unremarkable. No tears or tenosynovitis. Carpal tunnel:Unremarkable MUSCLES: Unremarkable. MEDIAN NERVE: Unremarkable on this noncontrast examination. SOFT TISSUES: Unremarkable. LIGAMENTS: Unremarkable. TRIANGULAR FIBROCARTILAGE: Mild increased signal. No high-grade tear OTHER: There is no evidence of tear of the ulnar collateral ligament of the thumb at the level the me tacarpal phalangeal joint. IMPRESSION: There is mild-moderate degenerative change in the 1st carpometacarpal joint, this being the articulat ion between the thumb metacarpal and the trapezium. There is a moderate size joint effusion of this articulation as described above. No evidence of tendon tears nor tenosynovitis. DATA REPOSITORY:
--- NOTE | 2024-08-09 10:43 | DI.VRAD_ITS ---
PROCEDURE INFORMATION: Exam: MR Left Upper Extremity Joint Without Contrast; Wrist Exam date and time: 08/09/2024 8:59 AM Age: 49 years old Clinical indication: Pain; Swelling; Wrist; Left TECHNIQUE: Imaging protocol: Magnetic resonance imaging of the left upper extremity without contrast. Exam focused on the wrist. COMPARISON: CR XR WRIST LT COMP NAVICULAR 07/25/2024 11:28 AM (report not provided) FINDINGS: Bones/joints: The joint spaces are normally aligned. The radiocarpal compartment is with mild chondromalacia, very mild periarticular osteophyte formation and a minimal effusion. The 1st carpometacarpal joint is with mild chondromalacia and minor periarticular osteophyte formation and subcortical degenerative cystic change. A moderate effusion involves the joint. Tiny cystic foci within some additional carpal bones are likely degenerative as well. Bone islands are again present in the lunate and scaphoid. The thumb is also included, and there is very mild osteophyte formation about the 1st metacarpophalangeal and interphalangeal joints. Collateral ligaments of digits: The ulnar collateral ligament of the 1st metacarpophalangeal joint is mildly thickened and increased in signal, indicating sprain. Scapholunate ligament: Unremarkable. No tear. Lunotriquetral ligament: Unremarkable. No tear. Triangular fibrocartilage complex: Unremarkable. No tear. Flexor compartment tendons: Unremarkable. No tear. Extensor compartment tendons: Unremarkable. No tear. Soft tissues: There is mild subcutaneous soft tissue edema dorsally. IMPRESSION: 1. Degenerative changes as described. 2. Minimal radiocarpal compartmental effusion with moderate effusion of the 1st carpometacarpal joint, nonspecific, could be degenerative. 3. Sprain of the ulnar collateral ligament of the 1st metacarpophalangeal joint. Dictated and Authenticated by: Win Davis MD. Ordering:[email or web address].EVY Rodgers MD
== END 2024-08-09 03:07 ==
PROVIDERS: PCP Student in an Organized Health Care Education/Training Program; Visit Provider Student in an Organized Health Care Education/Training Program
DX: S63.042D Subluxation of carpometacarpal joint of left thumb, subsequent encounter (principal); X58.XXXD Exposure to other specified factors, subsequent encounter
CPT/HCPCS: 73221

== ENCOUNTER → 2025-06-27 14:06 | Outpatient (CLI) | payer OTHER, SELFPAY ==
--- NOTE | 2025-06-27 | DI.RAD_ITS ---
Exam(s) XR LUMBAR SPINE COMPLETE EXAM: XR LUMBAR SPINE COMPLETE CLINICAL HISTORY: ACUTE MIDLINE LOW BACK PAIN,M54.50. TECHNIQUE: 2D digital imaging was performed. Five views. COMPARISON: No exams were available for comparison FINDINGS: BONES: No fracture or destructive lesion. Vertebral body heights are maintained. There is mild facet hypertrophy identified at L4-5. DISKS: Intervertebral disc spaces are maintained. ALIGNMENT: Slight spondylolisthesis at L4-5 secondary to facet degenerative changes. SOFT TISSUE: Normal. IMPRESSION: Mild facet degenerative changes and slight spondylolisthesis at L4-5. DATA REPOSITORY: RADIATION DOSE DELIVERED:
== END ==
LOC: DI 14:06
PROVIDERS: PCP Student in an Organized Health Care Education/Training Program
DX: M43.16 Spondylolisthesis, lumbar region (principal); M89.38 Hypertrophy of bone, other site
CPT/HCPCS: 72110